=== PATIENT | male | born 1955 | race Caucasian/White ===

== ENCOUNTER 2024-01-07 14:46 | Emergency (ER) | payer MEDICARE, OTHER, SELFPAY ==
[2024-01-07 14:49] VITALS: BP 107/73
[2024-01-07 15:12] LABS: % Basophils 0.8 % (0-2); % Eosinophils 1.7 % (0-6); % Immature Granulocytes 0.6 % (0-0.5); % Lymphocytes 23.3 % (20.5-51.1); % Neutrophils 63.6 % (42.2-75.2); Absolute Basophils 0.1 10^3/uL (0-0.2); Absolute Eosinophils 0.2 10^3/uL (0-0.7); Absolute Immature Granulocytes 0.1 10^3/uL (0-0.05); Absolute Lymphocytes 2.5 10^3/uL (1.2-3.4); Absolute Monocytes 1.1 10^3/uL (0.1-0.6); Absolute Neutrophils 6.8 10^3/uL (1.4-6.5); Hemoglobin 14.5 g/dL (13.0-18.0); Mean Corp Hgb Conc. 34.5 g/dL (33.0-37.0); Mean Corpuscular Hgb 30.7 pg (27.0-31.0); Mean Corpuscular Volume 88.8 fL (80.0-94.0); Mean Platelet Volume 9.8 fL (7.4-10.4); Nucleated Red Blood Cells % 0 % (-); Platelet Count 263 10^3/uL (130-400); Red Blood Cell Count 4.73 10^6/uL (4.70-6.10); Red Cell Dist. Width 13.5 % (11.5-14.5); White Blood Cell Count 10.6 10^3/uL (4.8-10.8)
[2024-01-07 15:16] LABS: Urine Albumin Trace (Neg - Trace); Urine Bilirubin 1+ (Negative); Urine Character Clear (Clear); Urine Color Yellow; Urine Glucose Negative (Negative); Urine Ketone 1+ (Negative); Urine Leukocyte Trace (Negative); Urine Nitrite Negative (Negative); Urine Occult Blood 2+ (Negative); Urine Urobilinogen Negative (Neg - 1+)
[2024-01-07 15:30] LABS: Urine Bacteria Few (Negative); Urine Squamous Cell 0-2 /LPF (Few)
[2024-01-07 15:36] LABS: ALT (SGPT) < 10 U/L (0-50); AST (SGOT) 25 U/L (17-59); Albumin 4.6 g/dl (3.5-5.0); Alkaline Phosphatase 76 U/L (38-126); Blood Urea Nitrogen 26 mg/dl (9-20); Calcium 9.2 mg/dl (8.4-10.2); Carbon Dioxide 27 mmol/L (22-30); Chloride 109 mmol/L (98-107); Glucose 86 mg/dl (70-99); Lipase 56 U/L (23-300); Potassium 4.3 mmol/L (3.5-5.1); Sodium 139 mmol/L (135-145); Total Bilirubin 0.6 mg/dl (0.2-1.3); Total Protein 7.9 g/dl (6.3-8.2); eGFR > 60.00
--- NOTE | 2024-01-07 17:26 | ED.GENMED ---
History of Present Illness
General
Chief Complaint: Abdominal Pain
Source: patient
Time Seen by Provider: 01/07/24 17:10
Travel History
Have you had any contact with someone who has COVID-19?: No
Do you have any symptoms of coronavirus? Fever > 100 degrees, chills, cough, shortness of breath, sore throat, loss of taste or smell, muscle aches, or headache?: No
History of Present Illness
History of Present Illness:
68-year-old male with past medical history of Parkinson's disease, previous history of DVT presenting to the emergency department for evaluation of left-sided flank pain that started upon awakening, began acutely, sharp, constant with waxing and
waning intensity associated in the later afternoon with increased urinary frequency and urgency but without any nausea, vomiting, bowel changes, hematuria, dysuria, testicular pain or edema or any other concerns. Patient states that the pain is
reminiscent of previous kidney stones. He did not take anything for pain prior to arrival but does state the pain did improve with putting ice packs over the left flank area.
Past History
Past History
ED Past Medical History: Other (Parkinson's) and Other (DVT, right lower extremity x2)
ED Past Surgical History: None
Social History
Tobacco: Non-smoker
Alcohol: None
Drug: None
Personal:
Living: with family
Employment: Employed
Review of Systems
Review of Systems
All Other Systems: ROS reviewed and negative except as documented in HPI and ROS
Phy Exam
Physical Exam
Physical Exam:
GENERAL: Alert , in no apparent distress
EYE: clear conjunctiva b/l
HEAD: NCAT
ENT: o/p clr, mmm.
CARDIAC: Regular rate and rhythm .
LUNGS: Clear breath sounds bilaterally, no acute respiratory distress, no wheezes/rales/rhonchi
ABDOMEN: Soft, without focal tenderness, no r/g, mild left CVA tenderness
NEUROLOGICAL: Alert and oriented
SKIN: Warm and dry, skin intact.
MUSCULOSKELETAL: No edema, well perfused.
PSYCH: Normal and appropriate interaction.
Scores
Heart Failure Risk
Heart Failure Risk Score: Not Applicable
Heart Score for Chest Pain Patients
STEMI patient?: Not applicable
Withdrawal Assessment of Alcohol
Withdrawal Assessment Completed?: Not applicable
Course
Orders/Labs/Results
Orders:
Orders
01/07/24 15:03
Complete Blood Count/With Diff Urgent
Comprehensive Metabolic Panel Urgent
Lipase Urgent
Urinalysis Reflex To Culture Urgent
Date Specimen was Collected: 01/07/24
Time Specimen was Collected: 14:54
Urine Microscopic Reflex Cult Urgent
01/07/24 17:18
CT Abd/pel Without Iv Or Oral Urgent
Comment:
Reason For Exam: left flank pain, hx of stones
01/07/24 17:30
0.9% Sodium Chloride 1000 ml [Nss] 1,000 ml IV BOLUS
Ketorolac [Toradol] 30 mg IV NOW STA
Abnormal Lab Results
01/07/24
15:03
Abs Immat Gran (auto) 0.1 H 10^3/uL
(0-0.05)
Absolute Neuts (auto) 6.8 H 10^3/uL
(1.4-6.5)
Absolute Monos (auto) 1.1 H 10^3/uL
(0.1-0.6)
Immature Gran % 0.6 H %
(0-0.5)
Monocytes % 10.0 H %
(1.7-9.3)
Chloride 109 H mmol/L
(98-107)
BUN 26 H mg/dl
(9-20)
Urine Ketones 1+ A
(Negative)
Ur Occult Blood Reflex 2+ A
(Negative)
Urine Bilirubin 1+ A
(Negative)
Leukocyte Esterase Rfl Trace A
(Negative)
Urine RBC 11-15 A /HPF
(0-2)
Urine Bacteria (Reflex) Few A
(Negative)
01/07/24 15:03
01/07/24 15:03
Vital Signs
Initial and Last Documented VS:
Initial Vital Signs
Temp Pulse Resp BP Pulse Ox
97.7 F 78 18 107/73 99
01/07/24 14:49 01/07/24 14:49 01/07/24 14:49 01/07/24 14:49 01/07/24 14:49
Last Documented Vital Signs
Temp Pulse Resp BP Pulse Ox
97.7 F 78 18 107/73 99
01/07/24 14:49 01/07/24 14:49 01/07/24 14:49 01/07/24 14:49 01/07/24 14:49
MDM/Problems Addressed
Differential Diagnosis Includes:
Renal/ureteral colic, urinary tract infection/cystitis/pyelonephritis, diverticulitis
MDM/Problems Addressed:
68-year-old male presenting emergency department for evaluation of left-sided flank pain that began this morning, pain now radiating more into the left lower quadrant and associated with urinary frequency and urgency. Based on the description of
pain and symptoms I suspect ureteral colic to be the most likely diagnosis. Lab and urine were initiated in triage which shows microscopic hematuria furthering suspicion for renal/ureteral colic. CT ordered. Pain control ordered. Reassessment
following. The
*Radiology
Radiology exam reviewed: radiology read reviewed
*Pulse Oximetry
Patient hypoxic: no
*Critical Care Note
Total Time (30-74mins, 75-104mins- exclusive of procedures): Not Applicable
Data Reviewed
Review of Other/Old Records Reveals: Labs and Records
Patient Management
Escalation/DeEscalation of care consider admission/obs:
Patient's CT findings as noted below:
IMPRESSION:
1. MILD ACUTE LEFT HYDROURETERONEPHROSIS secondary to a 2.9 mm obstructing calculus in the distal left ureter.
2. Small nonobstructing right intrarenal calculi measuring less than 5 mm in size.
3. Moderate diffuse hepatic steatosis.
4. Moderate calcific atherosclerotic plaque in the abdominal aorta.
5. Mildly enlarged prostate gland.
6. Severe facet joint arthrosis at L4/L5 and L5/S1.
Pain is fully resolved. Patient was provided with a printout of his CT reports. He was provided with prescription for naproxen, Percocet and Flomax. Information for urology was also provided. He will contact them on Tuesday for a follow-up visit.
Aware of return precautions but otherwise stable for discharge home.
ED Attending Note
-
Portions of this chart may have been created with voice recognition software.� Occasional wrong word or��sound alike� substitutions may have occurred due to the inherent limitations of voice recognition software.
Discharge Plan
Departure
Patient Disposition: Home (Routine Discharge)
Date of Disposition: 01/07/24
Time of Disposition: 18:42
Patient with high blood pressure during this ER visit?: No
Discharge Problem:
Ureterolithiasis
Instructions: Kidney Stones (DC)
Prescriptions:
New
naproxen 500 mg tablet
500 mg PO BID PRN (Reason: Pain) Qty: 20 0RF
oxycodone-acetaminophen [Percocet] 5-325 mg tablet
1 tab PO Q6HPRN PRN (Reason: pain) Qty: 8 0RF
tamsulosin [Flomax] 0.4 mg capsule
0.4 mg PO DAILY Qty: 10 0RF
No Action
oxycodone-acetaminophen 5 MG/325 MG tablet
1 tab PO Q4HPRN PRN (Reason: pain) Qty: 16 0RF
levofloxacin 500 MG tablet
500 mg PO DAILY 5 Days 0RF
hydrocodone-acetaminophen 1 TABLET tablet
1 tab PO Q4HPRN PRN (Reason: breakthrough pain) Qty: 7 0RF
tamsulosin 0.4 MG capsule
0.4 mg PO DAILY Qty: 5 0RF
diclofenac sodium 75 MG tablet,delayed release (DR/EC)
75 mg PO BID Qty: 14 0RF
apixaban [Eliquis DVT-PE Treat 30D Start] 5 MG tablets,dose pack
5 - 10 mg PO DIRECTED Qty: 1 0RF
Eliquis DVT-PE Treat 30D Start 5 mg (74 tabs) tablets,dose pack
See Rx Instructions .ROUTE .COMPLEX Qty: 1 0RF
Rx Instructions:
orally per package directions
Eliquis 5 mg tablet
5 mg PO BID Qty: 60 0RF
Referrals:
Sandhya Zurita DO [Family Provider] -
Jorge Kauffman MD [Active] - (Urology)
Interventions
Interventions:
*Risk Screen - Suicide Last Done: 01/07/24 17:54
*General Assessment Last Done: 01/07/24 14:49
*Neglect/Abuse Screening Last Done: 01/07/24 17:54
*ED COVID-19 Vaccine History Last Done: 01/07/24 14:49
OX-Ouypmh-Dmkjoivnxx Assessment Last Done: 01/07/24 17:54
Discharge Date and Time
Print Language: TAMAZIGHT
[2024-01-07] MEDS: NSS 1000 IV (17:40)
[2024-01-07] MEDS: TORADOL 30 MG IV (17:42)
== END 2024-01-07 20:06 | disposition home or self-care (01) ==
LOC: EMR 14:46
PROVIDERS: Emergency Medicine; EMERGENCY PHYSICIAN Emergency Medicine; FAMILY PHYSICIAN Family Medicine
DX: N13.2 Hydronephrosis with renal and ureteral calculous obstruction (principal); K76.0 Fatty (change of) liver, not elsewhere classified; G20.A1 Parkinson's disease without dyskinesia, without mention of fluctuations; Z86.718 Personal history of other venous thrombosis and embolism; Z87.442 Personal history of urinary calculi; Z79.01 Long term (current) use of anticoagulants; Z88.0 Allergy status to penicillin
CPT/HCPCS: 99284; 96374; 96361; 74176; 80053; 81003; 81015; 83690; 85025

== ENCOUNTER 2024-05-22 01:14 | Observation (INO) | payer MEDICARE, OTHER, SELFPAY ==
[2024-05-21] VITALS (8 sets, daily range): BP systolic 114–157; BP diastolic 62–89; PULSE 70–75
[2024-05-21 18:58] LABS: % Basophils 0.8 % (0-2); % Eosinophils 1.2 % (0-6); % Immature Granulocytes 0.1 % (0-0.5); % Lymphocytes 21.8 % (20.5-51.1); % Monocytes 8.9 % (1.7-9.3); % Neutrophils 67.2 % (42.2-75.2); Absolute Basophils 0.1 10^3/uL (0-0.2); Absolute Eosinophils 0.1 10^3/uL (0-0.7); Absolute Lymphocytes 1.9 10^3/uL (1.2-3.4); Absolute Monocytes 0.8 10^3/uL (0.1-0.6); Absolute Neutrophils 5.7 10^3/uL (1.4-6.5); Hematocrit 37.3 % (39.0-52.0); Hemoglobin 12.8 g/dL (13.0-18.0); Mean Corp Hgb Conc. 34.3 g/dL (33.0-37.0); Mean Corpuscular Hgb 30.5 pg (27.0-31.0); Mean Corpuscular Volume 88.8 fL (80.0-94.0); Nucleated Red Blood Cells % 0 % (-); Platelet Count 231 10^3/uL (130-400); Red Cell Dist. Width 13.4 % (11.5-14.5); White Blood Cell Count 8.5 10^3/uL (4.8-10.8)
[2024-05-21 19:16] LABS: ALT (SGPT) < 10 U/L (0-50); AST (SGOT) 23 U/L (17-59); Albumin 4.5 g/dl (3.5-5.0); Alkaline Phosphatase 70 U/L (38-126); Blood Urea Nitrogen 31 mg/dl (9-20); Calcium 9.8 mg/dl (8.4-10.2); Carbon Dioxide 21 mmol/L (22-30); Chloride 109 mmol/L (98-107); Glucose 96 mg/dl (70-99); Potassium 4.1 mmol/L (3.5-5.1); Sodium 139 mmol/L (135-145); Total Bilirubin 0.8 mg/dl (0.2-1.3); Total Protein 7.5 g/dl (6.3-8.2); eGFR > 60.00
--- NOTE | 2024-05-21 22:23 | ED.GENMED ---
History of Present Illness
<Jie Miller MD, Resident - Last Filed: 05/22/24 01:08>
General
Chief Complaint: Numbness
Time Seen by Provider: 05/21/24 21:55
History of Present Illness
History of Present Illness:
The patient is 68 year old male with a PMH of Parkinson Disease,Kidney stone, Hepatic steatosis, DVT who presented to ER today complaining from numbness and tingling on his left hand. He reports that he feels his numbness and tingling especially on
his 4 and 5 th finger tips and, it was radiating to his left wrist and under his elbow when it started. This complaining started today around 4.00 pm after he did some gardening works with tools. Additionally he reported that he stood on his knee
for a long time more than normal. He reported he felt weakness on his knee and he experienced this kind of weakness for the first time. He denies chest pain, SOB, trauma, weakness on his extremities.
If applicable-neuro sx onset
Date of onset of symptoms: 05/21/24
Past History
<Jie Miller MD, Resident - Last Filed: 05/22/24 01:08>
Past History
ED Past Medical History: Other (Parkinson's) and Other (DVT, right lower extremity x2)
ED Past Surgical History: None
Social History
Tobacco: Non-smoker
Alcohol: None
Drug: None
Personal:
Living: with family
Employment: Employed
Review of Systems
<Jie Miller MD, Resident - Last Filed: 05/22/24 01:08>
Review of Systems
Cardiac: Reports no symptoms
ABD/GI: Reports no symptoms
: Reports no symptoms
Skin: Reports no symptoms
Neurological: Reports no symptoms
Phy Exam
<Jie Miller MD, Resident - Last Filed: 05/22/24 01:08>
Physical Exam
Physical Exam:
Phalen test bilateral negative
General Physical Exam
General Presentation: well appearing
General age: appears stated age
General Skin: warm
General Mental: alert
ENT Exam
ENT Exam: pharynx normal
Cardiovascular Exam
Cardiovascular Exam: regular rate/rhythm and no edema
Pulmonary Exam
Pulmonary Exam: no respiratory distress
Neurological Exam
Neurological Exam: alert, oriented x3, CN II-XII intact, no motor deficits, normal reflexs, no sensory deficits and speech normal
Course
<Jie Miller MD, Resident - Last Filed: 05/22/24 01:08>
Orders/Labs/Results
Orders:
Orders
05/21/24 18:53
CMP [Comprehensive Metabolic Panel] Urgent
Complete Blood Count/With Diff Urgent
05/21/24 22:22
Electrocardiogram (*1) Urgent
Reason for Study: Other
Other Reason for Exam: numbness on left hand
05/21/24 22:23
EKG- Treatment ONCE
05/21/24 22:40
Orthostatic VS- Treatment ONCE
05/21/24 22:41
CT Head W/o Iv Contrast Urgent
Comment:
Reason For Exam: L arm numbness, b/l leg weakness-acute onset
05/22/24 00:42
Troponin I Urgent
Abnormal Lab Results
05/21/24
18:53
RBC 4.20 L 10^6/uL
(4.70-6.10)
Hgb 12.8 L g/dL
(13.0-18.0)
Hct 37.3 L %
(39.0-52.0)
Absolute Monos (auto) 0.8 H 10^3/uL
(0.1-0.6)
Chloride 109 H mmol/L
(98-107)
Carbon Dioxide 21 L mmol/L
(22-30)
BUN 31 H mg/dl
(9-20)
05/21/24 18:53
05/21/24 18:53
Vital Signs
Initial and Last Documented VS:
Initial Vital Signs
Temp Pulse Resp BP Pulse Ox
98.1 F 83 18 117/62 96
05/21/24 18:42 05/21/24 18:42 05/21/24 18:42 05/21/24 18:42 05/21/24 18:42
Last Documented Vital Signs
Temp Pulse Resp BP Pulse Ox
98.1 F 66 16 143/84 99
05/21/24 18:42 05/22/24 00:45 05/22/24 00:45 05/22/24 00:41 05/22/24 00:45
<Martha Juárez, DO - Last Filed: 05/22/24 00:32>
Orders/Labs/Results
Orders:
Orders
05/21/24 18:53
CMP [Comprehensive Metabolic Panel] Urgent
Complete Blood Count/With Diff Urgent
05/21/24 22:22
Electrocardiogram (*1) Urgent
Reason for Study: Other
Other Reason for Exam: numbness on left hand
05/21/24 22:23
EKG- Treatment ONCE
05/21/24 22:40
Orthostatic VS- Treatment ONCE
05/21/24 22:41
CT Head W/o Iv Contrast Urgent
Comment:
Reason For Exam: L arm numbness, b/l leg weakness-acute onset
05/22/24 00:42
Troponin I Urgent
Abnormal Lab Results
05/21/24
18:53
RBC 4.20 L 10^6/uL
(4.70-6.10)
Hgb 12.8 L g/dL
(13.0-18.0)
Hct 37.3 L %
(39.0-52.0)
Absolute Monos (auto) 0.8 H 10^3/uL
(0.1-0.6)
Chloride 109 H mmol/L
(98-107)
Carbon Dioxide 21 L mmol/L
(22-30)
BUN 31 H mg/dl
(9-20)
05/21/24 18:53
05/21/24 18:53
Vital Signs
Initial and Last Documented VS:
Initial Vital Signs
Temp Pulse Resp BP Pulse Ox
98.1 F 83 18 117/62 96
05/21/24 18:42 05/21/24 18:42 05/21/24 18:42 05/21/24 18:42 05/21/24 18:42
Last Documented Vital Signs
Temp Pulse Resp BP Pulse Ox
98.1 F 66 16 143/84 99
05/21/24 18:42 05/22/24 00:45 05/22/24 00:45 05/22/24 00:41 05/22/24 00:45
<Jie Miller MD, Resident - Last Filed: 05/22/24 01:08>
MDM/Problems Addressed
Differential Diagnosis Includes:
IL, TIA, Peripheral nerve impingement, cervical disc hernia, musculoskeletal injury
MDM/Problems Addressed:
ECG, CBC, CMP, Head CT were ordered.
ECG and CMP :Unremarkable
CBC: Low RBC ( HGB:12.8), The patient denied rectal exam and reported he prefers to be followup up by his PCP.
Head CT:
<Jie Miller MD, Resident - Last Filed: 05/22/24 01:08>
*Critical Care Note
Total Time (30-74mins, 75-104mins- exclusive of procedures): Not Applicable
ED Attending Note
<Jie Miller MD, Resident - Last Filed: 05/22/24 01:08>
-
Portions of this chart may have been created with voice recognition software.� Occasional wrong word or��sound alike� substitutions may have occurred due to the inherent limitations of voice recognition software.
<Martha Juárez DO - Last Filed: 05/22/24 00:32>
ED Attending Note
Patient seen and examined by attending physician: Yes
I performed the substantive portion of visit, reviewed & personally made and approve the management plan that is documented in note by myself or MIGUEL.: Yes
I performed a history and physical exam of patient and discussed management with resident, I reviewed resident's note and agree with documented findings and plan of care.: Yes
ED Attending Note:
This is a 69-year-old gentleman who resides at home with his and sister. He has history of Parkinson's disease as well as prior history of DVT right lower extremity x 2 episodes November 2021 and again August 2022, treated each time with a
course of Eliquis and then reportedly followed up with hematology. Unsure as to hypercoagulable workup but states he was not recommended to continue long-term anticoagulation.
While working on his tractor today lying on his knees, on the ground, using tools he was able to do this uneventfully and was able to get up and going to the house but an hour after completing his work he developed abrupt onset of left arm numbness
primarily ulnar aspect of his forearm that radiated to his left fourth and fifth digit accompanied with bilateral knee weakness feeling that his knees were going to give out, feeling that he was going to fall. Significant weakness lasted perhaps 5
minutes and he needed to quickly sit down but was not accompanied with sensation of lightheadedness, no chest pain or palpitations, no dizziness, no diaphoresis, no shortness of breath. No back pain nor abdominal pain.
Initial episode occurred perhaps 4 PM/4:30 PM and then another very similar episode happened while in the ED waiting room after he walked to the bathroom he developed sudden onset of left arm numbness, bilateral knee weakness causing him to have to
lean against the door for fear that his legs were going to give out. He did not, no other associated and bilateral knee soft after 5 to 10 minutes. Left forearm numbness slowly 30 minutes. He denies leg pain nor numbness.
No history of similar episodes in the past.
GENERAL: Alert , in no apparent distress. 69-year-old gentleman appears his stated age, awake and alert, pleasant, appears in no acute distress. Easily communicative. Sister is accompanying.
EYE: pupils equal and reactive. anicteric
NECK: Supple, nontender, no meningismus, no significant adenopathy.
ENT: posterior pharynx is clear, oral mucosa is moist. TM clear b/l, nares patent.
CARDIAC: Regular rate and rhythm. no murmur.
LUNGS: Clear breath sounds bilaterally, no acute respiratory distress, no wheezes/rales/rhonchi
ABDOMEN: Soft, nondistended, without focal tenderness, no r/g, no cvat. normoactive BS.
NEUROLOGICAL: Alert and oriented x3, moderate resting tremor of bilateral upper extremities/hands. Minimal paresthesia left fourth and fifth digits. Strength intact bilaterally. Gait is steady.
SKIN: Warm and dry, normal color, skin intact. No rash.
MUSCULOSKELETAL: No C/C/E. peripheral pulses are full and equal b/l. No palpable tenderness.
PSYCH: Normal and appropriate interaction.
Concern for TIA, CVA, arrhythmia, orthostasis, ACS, muscle fatigue, ulnar neuropathy.
Labs show mild anemia with hemoglobin of 12.8, 2 g drop since January. Patient denies black or tarry stools. He declines rectal exam.
Will check orthostatic vital signs. Troponin.
Will check EKG as well as CT of the head.
05/22/2024 0031 AM
Orthostatic vital signs are negative.
EKG shows normal sinus rhythm, right bundle branch block, no acute ST-T wave abnormalities. No old EKG to compare.
CT of the head is unremarkable.
I still have significant concern for potential TIA thus recommend hospitalization for continued observation/evaluation.
Discharge Plan
Departure
Patient Disposition: Admit
Date of Disposition: 05/22/24
Time of Disposition: 00:24
Admit to: Telemetry
Admit to doctor: Htay
Presentation/result/management discussed w/ accepting MD/DO: Hospitalist
Condition: Fair
Discharge Problem:
TIA r/o CVA, New onset anemia
Prescriptions:
No Action
oxycodone-acetaminophen 5 MG/325 MG tablet
1 tab PO Q4HPRN PRN (Reason: pain) Qty: 16 0RF
levofloxacin 500 MG tablet
500 mg PO DAILY 5 Days 0RF
hydrocodone-acetaminophen 1 TABLET tablet
1 tab PO Q4HPRN PRN (Reason: breakthrough pain) Qty: 7 0RF
tamsulosin 0.4 MG capsule
0.4 mg PO DAILY Qty: 5 0RF
diclofenac sodium 75 MG tablet,delayed release (DR/EC)
75 mg PO BID Qty: 14 0RF
apixaban [Eliquis DVT-PE Treat 30D Start] 5 MG tablets,dose pack
5 - 10 mg PO DIRECTED Qty: 1 0RF
Eliquis DVT-PE Treat 30D Start 5 mg (74 tabs) tablets,dose pack
See Rx Instructions .ROUTE .COMPLEX Qty: 1 0RF
Rx Instructions:
orally per package directions
Eliquis 5 mg tablet
5 mg PO BID Qty: 60 0RF
naproxen 500 mg tablet
500 mg PO BID PRN (Reason: Pain) Qty: 20 0RF
oxycodone-acetaminophen [Percocet] 5-325 mg tablet
1 tab PO Q6HPRN PRN (Reason: pain) Qty: 8 0RF
tamsulosin [Flomax] 0.4 mg capsule
0.4 mg PO DAILY Qty: 10 0RF
Referrals:
Sandhya Zurita DO [Family Provider] -
Interventions
Interventions:
ED- Neurological Assessment Last Done: 05/21/24 21:25
Discharge Date and Time
Print Language: MONEGASQUE
[2024-05-22] VITALS (7 sets, daily range): BP systolic 98–148; BP diastolic 59–90; PULSE 71; O2SAT 99; BMI 23.4
--- NOTE | 2024-05-22 00:56 | HPS.HSE ---
Family Physician
-
Family Physician: Sandhya Zurita
Chief Complaint
-
evaluation of Lt hand numbness and tingling:
History of Present Illness
HPI
68M PHX PKDz Hepatic steatosis, DVT, chr Eliquis, HTN seen at ER for evaluation of Lt hand numbness and tingling:
- Acute paresthesia especially on 4th and 5 th finger tips for 30 Mins : now completely resolved
- associated with radiating to left wrist and under his elbow
- Onset today after working on fixing tractor using tools for 3-4 hrs
- Also stood on his knee for a long time more than normal consequently felt weakness of knee
ROS
denies chest pain, SOB, trauma, weakness on his extremities.
Medical History
Past Medical History
Past Medical History: Reports HTN and Other (DVT )
Additional Past Medical History:
Hepatic steatosis
Past Surgical History: Reports None
Social History
Tobacco: Non-smoker
Alcohol: None
Drug: None
Personal:
Living: With Family
Family History
Family History: Not pertinent
Allergies / Home Medications
Allergies reflects when Allergies were last updated in [employer].
Home Medications with original date entered in [employer]
Allergy/Medication List:
Allergies
Allergy/AdvReac Type Severity Reaction Status Date / Time
Penicillins Allergy Rash Verified 05/21/24 18:44
Home Medications
levofloxacin 500 mg tablet 500 mg PO DAILY 5 days 03/30/10
oxycodone-acetaminophen 5 mg-325 mg tablet 1 tab PO Q4HPRN PRN pain #16 tabs 03/30/10
diclofenac sodium 75 mg tablet,delayed release 75 mg PO BID #14 tabs 05/05/21
hydrocodone 5 mg-acetaminophen 325 mg tablet 1 tab PO Q4HPRN PRN breakthrough pain #7 tabs 05/05/21
tamsulosin 0.4 mg capsule 0.4 mg PO DAILY #5 caps 05/05/21
apixaban 5 mg (74 tabs) tablets in a dose pack (Eliquis DVT-PE Treat 30D Start) 5 - 10 mg (1 - 2 x 5 mg (74 tabs)) PO DIRECTED ##1 11/03/21
apixaban 5 mg (74 tabs) tablets in a dose pack (Eliquis DVT-PE Treat 30D Start) See Rx Instructions PO .COMPLEX #1 ea 08/10/22
apixaban 5 mg tablet (Eliquis) 5 mg PO BID #60 tabs 08/11/22
naproxen 500 mg tablet 500 mg PO BID PRN Pain #20 tabs 01/07/24
oxycodone-acetaminophen 5 mg-325 mg tablet (Percocet) 1 tab PO Q6HPRN PRN pain #8 tabs 01/07/24
tamsulosin 0.4 mg capsule (Flomax) 0.4 mg PO DAILY #10 caps 01/07/24
Review of Systems
-
Constitutional: Reports No Symptoms
EENT: Reports No Symptoms
Respiratory: Reports No Symptoms
Cardiac: Reports No Symptoms
Abdomen/GI: Reports No Symptoms
: Reports No Symptoms
Musculoskeletal: Reports No Symptoms
Skin: Reports No Symptoms
Neurological: Reports See HPI
Endocrine: Reports No Symptoms
Hematologic/Lymphatic: Reports No Symptoms
Psych: Reports No Symptoms
Physical Exam
Vital Signs
Vital Signs
Temp Pulse Resp BP Pulse Ox
98.1 F 66 16 143/84 99
05/21/24 18:42 05/22/24 00:45 05/22/24 00:45 05/22/24 00:41 05/22/24 00:45
Physical Exam
General: Well Developed, Well Nourished and No Apparent Distress
HEENT: NormoCephalic, Moist mucous membranes and Atraumatic
Respiratory: Clear
Cardiac: S1/S2 and Regular Rhythm; No Murmur or Rub
GI: Soft, Non Tender, Non Distended and Normal Bowel Sounds; No Organomegaly
Rectal: Deferred by Provider
Musculoskeletal: No Clubbing, No Cyanosis and No Edema
Skin: No Rash
Neuro: Nonfocal/grossly intact
Laboratory Results
-
05/21/24 18:53
05/21/24 18:53
Laboratory Results
Total Bilirubin 0.8 mg/dl (0.2-1.3) 05/21/24 18:53
AST 23 U/L (17-59) 05/21/24 18:53
ALT < 10 U/L (0-50) 05/21/24 18:53
Alkaline Phosphatase 70 U/L (38-126) 05/21/24 18:53
Impression/Plan
-
Reviewed VS: unremarkable
Data
Hgb 12.8
Cl 109
CO2 21
BUN 31
Cr 1.2
eGFR > 60
HCT
No acute pathology
EKG
NORMAL SINUS RHYTHM
POSSIBLE LEFT ATRIAL ENLARGEMENT
RIGHT SUPERIOR AXIS DEVIATION
INCOMPLETE RIGHT BUNDLE BRANCH BLOCK
POSSIBLE RIGHT VENTRICULAR HYPERTROPHY
POSSIBLE INFERIOR INFARCT , AGE UNDETERMINED
ABNORMAL ECG
NO PREVIOUS ECGS AVAILABLE
NO PRIOR hospitalist admission:
ASSESSMENT & PLAN
Pending Rx reconciliation
Transient acute paresthesia of Lt. 4th and 5 th finger tips with radiation to wrist and elbow: completely resolved when I see him
- Onset today after working on fixing tractor using tools for 3-4 hrs
- Low clinical suspicion for CVA
- Other DDX; Peripheral neuropathy due to entrapment or prolonged pressure duecto working on fixing tractor using tools for 3-4 hrs
- NEG HCT
- Nonfocal neuro deficit on exam
- hold of Brain MRI till Neuro evaluation
- Neuro consult
Transient weakness of both knees after prolonged pressure on both knees
Suspect muscle exhaustion especially with underlying PKDz
- PT/OT
HX PKDz
- pending Rx reconciliation
[facility] HTN
- cont. OP Meds after Pending Rx reconciliation
HX DVT in 2021 treated Eliquis for 6 monhs
- No longer on Eliquis
BPH
- on BOWL TOPPER Flomax
DVT Px: BOWL TOPPER Eliquis
Code: Full
Obs TLM
[2024-05-22 01:13] LABS: Troponin I < 0.012 ng/ml
--- NOTE | 2024-05-22 04:50 | PTCARENOTE ---
Receive pt from ER. Pt alert oriented X3, calm and cooperative. Pt assisted X1 to his bed, steady. Pt oriented to the room, call gibson within reach. VSS (T=98.3, HR=72, RR=18, AJ=129/82, SpO2=99% on RA). Pt on NSR on telemonitor. Pt has no complaint
of numbness, or weakness, states that his sx are completely resolved. Pt NIH=0. Passes the swallow test. Pt instructed to call if there is a recurrence of his previous sx or new sx. Stroke packet given to the pt. Will continue to monitor the pt.
[2024-05-22] MEDS: SINEMET 10-100 2 TABLET PO ×3 (06:01→12:53)
[2024-05-22] MEDS: REQUIP 4 MG PO (06:02)
--- NOTE | 2024-05-22 08:32 | W.PN.HOSP.TC ---
Today's Communication/Plan
-
Discharge planning today.
Assessment / Plan
Assessment / Plan
Physical exam:
General: Well Developed, Well Nourished and No Apparent Distress
HEENT: Normocephalic, Atraumatic and Moist Mucous Membranes
Respiratory: Clear to Auscultation; Negative Wheezes, Rales or Rhonchi
Cardiac: Regular Rhythm and S1/S2
GI: Soft, Nontender and Nondistended
Musculoskeletal: No Clubbing, No Cyanosis and No Edema
Neuro: Awake, Alert and Oriented, no neuro-deficits
Psych: Calm
A/P:
Transient paresthesia of the left upper extremity due to ulnar neuropathy-symptoms resolved, neurology consult appreciated. Cleared to discharge home today.
Parkinson's disease-continue carbidopa levodopa, also on Artane and ropinirole
DVT-resume anticoagulation upon discharge
DVT prophylaxis-resume anticoagulation upon discharge
CODE STATUS-full code
Anticipated Discharge: Today
Subjective/Interval History
-
Date of Service: May 22, 2024
Patient does not have any new complaints today. No paresthesias today but area affected corresponds to ulnar distribution.
Objective Data
-
Vital Signs:
Vital Signs
Temp Pulse Resp BP Pulse Ox
98.3 F 66 14 98/59 98
05/22/24 07:00 05/22/24 07:00 05/22/24 07:00 05/22/24 07:00 05/22/24 07:00
I&O
05/21/24 05/22/24 05/23/24
06:59 06:59 06:59
Intake Total 0 / 0
Balance 0 / 0
[2024-05-22 09:13] LABS: HDL Cholesterol 37 mg/dl; LDL Cholesterol, Calculated 99 mg/dl; Total Cholesterol 152 mg/dl (50-199); Triglyceride 82 mg/dl (10-149); Very Low Density Lipoprotein 16 mg/dl (0-30)
--- NOTE | 2024-05-22 10:53 | PTOTSP ---
Pt reports no symptoms today. He is able to get OOB and ambulate in hallway independently without need for any assistive device. No acute PT needs were identified. PT will sign off.
[2024-05-22] MEDS: ARTANE 2 MG PO (12:53)
--- NOTE | 2024-05-22 12:54 | W.DCSUMMARY ---
Addendum entered and electronically signed by Guerrero Escalera MD 05/22/24 13:34:
Discharge medications were erroneously placed on records therefore please see medication list upon discharge for accuracy.
Original Note:
Discharge Summary
Discharge Data
Date of Admission: 05/22/24
Date of Discharge: 05/22/24
-
Pending Results: No
Hospital Course
Patient is 69 years male history of DVT on anticoagulation, Parkinson's, came into the hospital left hand paresthesias. Patient was kept on observation. Neurology consulted. Patient feels back to his baseline at this point. His symptoms are
related to ulnar neuropathy and no need for further neurological workup. Neurology cleared him for discharge today. He will be discharged in stable condition today.
Discharge Plan
-
Patient Disposition: Home (Routine Discharge)
Discharge Diagnosis/Procedures: Left ulnar neuropathy. Parkinson disease.
Diet: Low Cholesterol
Activity: As tolerated
Blood Work: Please PCP to order CBC, BMP within 1 week
Referrals:
Tee Boucher MD [Active] - in four to six weeks
Sandhya Zurita DO [Family Provider] - in less than 1 week
Prescriptions:
Continued
oxycodone-acetaminophen 5 MG/325 MG tablet
1 tab PO Q4HPRN PRN (Reason: pain) Qty: 16 0RF
hydrocodone-acetaminophen 1 TABLET tablet
1 tab PO Q4HPRN PRN (Reason: breakthrough pain) Qty: 7 0RF
tamsulosin 0.4 MG capsule
0.4 mg PO DAILY Qty: 5 0RF
apixaban [Eliquis DVT-PE Treat 30D Start] 5 MG tablets,dose pack
5 - 10 mg PO DIRECTED Qty: 1 0RF
Eliquis DVT-PE Treat 30D Start 5 mg (74 tabs) tablets,dose pack
See Rx Instructions .ROUTE .COMPLEX Qty: 1 0RF
Rx Instructions:
orally per package directions
Eliquis 5 mg tablet
5 mg PO BID Qty: 60 0RF
oxycodone-acetaminophen [Percocet] 5-325 mg tablet
1 tab PO Q6HPRN PRN (Reason: pain) Qty: 8 0RF
tamsulosin [Flomax] 0.4 mg capsule
0.4 mg PO DAILY Qty: 10 0RF
trihexyphenidyl 2 mg Tablet
2 mg PO 2XD MDD 4 mg
Rx Instructions:
First dose at 1100 am. Second dose at 1600.
ropinirole 4 mg Tablet Extended Release 24 Hr
4 mg PO 2XD
Rx Instructions:
first dose in am at 0600.
2nd dose at 2030
carbidopa-levodopa 10-100 mg Tablet
2 tab PO 5/D
Rx Instructions:
0600, 0900, 1300,1700, 2000
Discontinued
levofloxacin 500 MG tablet
500 mg PO DAILY 5 Days 0RF
diclofenac sodium 75 MG tablet,delayed release (DR/EC)
75 mg PO BID Qty: 14 0RF
naproxen 500 mg tablet
500 mg PO BID PRN (Reason: Pain) Qty: 20 0RF
Discharge Orders:
Discharge Patient (As Directed); Ordered 05/22/24
Ordered By: Guerrero Escalera
Discharge Date and Time
Print Language: TAJIK
--- NOTE | 2024-05-22 13:11 | CM ---
CM reviewed medical records. Patient is medically ready for discharge to home. As per PT , no needs noted.
Plan: home no needs.
--- NOTE | 2024-05-22 19:14 | W.PN.UPDATE ---
Update Note
Progress Note Update
This note serves as an addendum to the H&P by aerospace mechanic MIGUEL Trinity PASCUAL
HPI
72F HX frequent UTI, s/p multiple rounds of ABX ( Zyvox, Cipro, Augmentin, Macrobid,). OP recent UCx grows EColi , HX ESBL E Coli +BCx( December 2023) Tx with Fosomycin pw abdominal discomfort, chills. Significant fatigue and weakness worsening over
past few days.
ROS:
Generalized myalgia and back and neck pain
Unable to get of the Sofa for few days but she use all the energy to drive and cone to ER ?
Stable VSS:
Patient nontoxic appearing
Unremarkable Labs
NEG UA
UCx sent
05/22/[address] abdomen/ pelvis ordered
- unofficial read per radiology showed nothing acute.
01/07/24 CT AP Without Iv Or Oral
1. MILD ACUTE LEFT HYDROURETERONEPHROSIS secondary to a 2.9 mm obstructing calculus in the distal left ureter.
2. Small nonobstructing right intrarenal calculi measuring less than 5 mm in size.
3. Moderate diffuse hepatic steatosis.
4. Moderate calcific atherosclerotic plaque in the abdominal aorta.
5. Mildly enlarged prostate gland.
6. Severe facet joint arthrosis at L4/L5 and L5/S1.
ASSESSMENT & PLAN
Weakness and fatigue
suspect deconditioning elderly
NEG Current UA
Recent OP recent E Coli POS UCx - unknown sensitivity
Recent multiple round of ABx Cipro, Augmentin, Macrobid
HX severe iodine allergy
- f/u official report of admission Noncontrast CT
- Retrieve recent E Coli POS UCx for the PCP office
- sent of UCx at ER
- PT/OT & CRM consult to evaluate for SNF
Diffuse myalgia and arthralgia with back and neck pain
No CABRERA, parieto temporal tenderness, no tongue and jaw claudication
No prior HX PMR
nl AST
- ESR, CRP
- CPK
- Check Covid
Of note; She drove herself to ER but tool a long time per patient
DVT Px: LMWH
Code: Full code
Obs MS
== END 2024-05-22 13:55 | disposition home or self-care (01) ==
LOC: 4 EAST ACU 01:14
PROVIDERS: Emergency Medicine; ADMITTING PHYSICIAN Internal Medicine; ATTENDING PHYSICIAN Hospitalist; EMERGENCY PHYSICIAN Emergency Medicine; FAMILY PHYSICIAN Family Medicine
DX: G56.22 Lesion of ulnar nerve, left upper limb (principal); R20.0 Anesthesia of skin; G20.A1 Parkinson's disease without dyskinesia, without mention of fluctuations; D64.9 Anemia, unspecified; I10 Essential (primary) hypertension; K76.0 Fatty (change of) liver, not elsewhere classified; R53.1 Weakness; R20.2 Paresthesia of skin; G62.9 Polyneuropathy, unspecified; N40.0 Benign prostatic hyperplasia without lower urinary tract symptoms; R29.818 Other symptoms and signs involving the nervous system; M79.10 Myalgia, unspecified site; M54.9 Dorsalgia, unspecified; M54.2 Cervicalgia; I67.82 Cerebral ischemia; I45.10 Unspecified right bundle-branch block; Z87.442 Personal history of urinary calculi; Z86.718 Personal history of other venous thrombosis and embolism; Z88.0 Allergy status to penicillin; Z79.01 Long term (current) use of anticoagulants; Z87.440 Personal history of urinary (tract) infections
CPT/HCPCS: 70450; 80053; 80061; 84484; 85025; 93005; 97161; 97166; 99285; G0378

== ENCOUNTER 2024-07-06 16:35 | Emergency (ER) | payer MEDICARE, OTHER, SELFPAY ==
[2024-07-06 16:50] VITALS: BP 121/84
[2024-07-06 17:07] LABS: % Basophils 0.3 % (0-2); % Eosinophils 1.1 % (0-6); % Immature Granulocytes 0.6 % (0-0.5); % Lymphocytes 9.9 % (20.5-51.1); % Neutrophils 77.1 % (42.2-75.2); Absolute Eosinophils 0.2 10^3/uL (0-0.7); Absolute Immature Granulocytes 0.1 10^3/uL (0-0.05); Absolute Lymphocytes 1.4 10^3/uL (1.2-3.4); Absolute Monocytes 1.5 10^3/uL (0.1-0.6); Absolute Neutrophils 10.6 10^3/uL (1.4-6.5); Hematocrit 36.3 % (39.0-52.0); Hemoglobin 12.4 g/dL (13.0-18.0); Mean Corp Hgb Conc. 34.2 g/dL (33.0-37.0); Mean Corpuscular Hgb 29.7 pg (27.0-31.0); Mean Corpuscular Volume 86.8 fL (80.0-94.0); Mean Platelet Volume 10.1 fL (7.4-10.4); Nucleated Red Blood Cells % 0 % (-); Platelet Count 184 10^3/uL (130-400); Red Blood Cell Count 4.18 10^6/uL (4.70-6.10); Red Cell Dist. Width 13.2 % (11.5-14.5); White Blood Cell Count 13.8 10^3/uL (4.8-10.8)
[2024-07-06 17:24] LABS: ALT (SGPT) < 10 U/L (0-50); AST (SGOT) 19 U/L (17-59); Albumin 4.2 g/dl (3.5-5.0); Alkaline Phosphatase 57 U/L (38-126); Blood Urea Nitrogen 24 mg/dl (9-20); Calcium 8.8 mg/dl (8.4-10.2); Carbon Dioxide 24 mmol/L (22-30); Chloride 101 mmol/L (98-107); Glucose 105 mg/dl (70-99); Potassium 4.2 mmol/L (3.5-5.1); Sodium 139 mmol/L (135-145); Total Bilirubin 1.2 mg/dl (0.2-1.3); Total Protein 7.3 g/dl (6.3-8.2); eGFR > 60.00
--- NOTE | 2024-07-06 19:25 | ED.GENMED ---
History of Present Illness
<KORI Luis Last Filed: 07/07/24 01:18>
General
Chief Complaint: DVT/Possible Blood Clot
Source: patient
Exam Limitations: none
Time Seen by Provider: 07/06/24 19:23
Nursing documentation reviewed up to this point in time: agreed with
History of Present Illness
History of Present Illness:
This is a 69 y/o male with PMH of parkinson's, DVTs presents emergency department today with concerns of left calf pain and swelling. Patient states that he first noticed this sensation 3 days ago. Patient states that he has had DVTs in the past
and states it felt similar to this. Patient states he has previous DVTs in his right calf. Patient states that he does smoke half a pack a day. Patient denies any recent trauma. Patient denies any recent long distance travel. Patient denies any
history of cancer. Patient denies any chest pain or shortness of breath. Patient states that he was taken off of his Eliquis back in January because his PCP felt that he has been on for an appropriate amount of time. Patient denies any new
medications.
Past History
<KORI Luis Last Filed: 07/07/24 01:18>
Past History
ED Past Medical History: Other (Parkinson's) and Other (DVT, right lower extremity x2)
ED Past Surgical History: None
Social History
Tobacco: Non-smoker
Alcohol: None
Drug: None
Personal:
Living: with family
Employment: Employed
Review of Systems
<KORI Luis Last Filed: 07/07/24 01:18>
Review of Systems
All Other Systems: ROS reviewed and negative except as documented in HPI and ROS
Phy Exam
<KORI Luis Last Filed: 07/07/24 01:18>
Physical Exam
Physical Exam:
General: Patient is well appearing and in no acute distress; non-toxic
Skin: Warm and dry, no rashes or lesions
Head: Normocephalic, atraumatic
Eyes: Sclera non-icteric. EOMs intact.
Cardiac: Regular rate and rhythm, no murmurs
Peripheral Vascular: Mild swelling noted to the left calf, no erythema, tenderness to palpation of the left calf, 2+ dorsalis pedis and posterior tibial pulses
Pulm: Normal respiratory effort, no wheezes, rales, rhonchi
Musculoskeletal: Tenderness to palpation of the left calf
Neuro: CN II-XII intact, no focal neurologic deficits.
Psychiatric: Appropriate mood and affect.
Course
<Joelle Hung PA-C - Last Filed: 07/07/24 01:18>
Orders/Labs/Results
Orders:
Orders
07/06/24 16:54
US Legs, Left [US Periph Venous LOWER Ext LT] Urgent
Comment:
Reason For Exam: pain, swelling
07/06/24 16:59
CBC/With Diff [Complete Blood Count/With Diff] Urgent
CMP [Comprehensive Metabolic Panel] Urgent
07/06/24 20:15
Apixaban [Eliquis] 10 mg PO BID
Abnormal Lab Results
07/06/24
16:59
WBC 13.8 H 10^3/uL
(4.8-10.8)
RBC 4.18 L 10^6/uL
(4.70-6.10)
Hgb 12.4 L g/dL
(13.0-18.0)
Hct 36.3 L %
(39.0-52.0)
Abs Immat Gran (auto) 0.1 H 10^3/uL
(0-0.05)
Absolute Neuts (auto) 10.6 H 10^3/uL
(1.4-6.5)
Absolute Monos (auto) 1.5 H 10^3/uL
(0.1-0.6)
Immature Gran % 0.6 H %
(0-0.5)
Neutrophils % 77.1 H %
(42.2-75.2)
Lymphocytes % 9.9 L %
(20.5-51.1)
Monocytes % 11.0 H %
(1.7-9.3)
BUN 24 H mg/dl
(9-20)
Glucose 105 H mg/dl
(70-99)
07/06/24 16:59
07/06/24 16:59
Vital Signs
Initial and Last Documented VS:
Initial Vital Signs
Temp Pulse Resp BP Pulse Ox
98.1 F 85 18 121/84 98
07/06/24 16:50 07/06/24 16:50 07/06/24 16:50 07/06/24 16:50 07/06/24 16:50
Last Documented Vital Signs
Temp Pulse Resp BP Pulse Ox
98.1 F 87 18 136/88 98
07/06/24 16:50 07/06/24 20:42 07/06/24 16:50 07/06/24 20:42 07/06/24 20:42
<Martha Juárez, DO - Last Filed: 07/06/24 20:20>
Orders/Labs/Results
Orders:
Orders
07/06/24 16:54
US Legs, Left [US Periph Venous LOWER Ext LT] Urgent
Comment:
Reason For Exam: pain, swelling
07/06/24 16:59
CBC/With Diff [Complete Blood Count/With Diff] Urgent
CMP [Comprehensive Metabolic Panel] Urgent
07/06/24 20:15
Apixaban [Eliquis] 10 mg PO BID
Abnormal Lab Results
07/06/24
16:59
WBC 13.8 H 10^3/uL
(4.8-10.8)
RBC 4.18 L 10^6/uL
(4.70-6.10)
Hgb 12.4 L g/dL
(13.0-18.0)
Hct 36.3 L %
(39.0-52.0)
Abs Immat Gran (auto) 0.1 H 10^3/uL
(0-0.05)
Absolute Neuts (auto) 10.6 H 10^3/uL
(1.4-6.5)
Absolute Monos (auto) 1.5 H 10^3/uL
(0.1-0.6)
Immature Gran % 0.6 H %
(0-0.5)
Neutrophils % 77.1 H %
(42.2-75.2)
Lymphocytes % 9.9 L %
(20.5-51.1)
Monocytes % 11.0 H %
(1.7-9.3)
BUN 24 H mg/dl
(9-20)
Glucose 105 H mg/dl
(70-99)
07/06/24 16:59
07/06/24 16:59
Vital Signs
Initial and Last Documented VS:
Initial Vital Signs
Temp Pulse Resp BP Pulse Ox
98.1 F 85 18 121/84 98
07/06/24 16:50 07/06/24 16:50 07/06/24 16:50 07/06/24 16:50 07/06/24 16:50
Last Documented Vital Signs
Temp Pulse Resp BP Pulse Ox
98.1 F 87 18 136/88 98
07/06/24 16:50 07/06/24 20:42 07/06/24 16:50 07/06/24 20:42 07/06/24 20:42
<Joelle Hung PA-C - Last Filed: 07/07/24 01:18>
MDM/Problems Addressed
Differential Diagnosis Includes:
Differentials include DVT, musculoskeletal sprain/strain, cellulitis, caal's cyst
MDM/Problems Addressed:
69-year-old male history of Parkinson's presents emergency department today with left calf pain. Patient has a history of DVTs, had unprovoked DVT in the past. Patient does pack a day. On exam, he does have tenderness to the left calf but with no
overlying erythema, he is good distal pulses. He was found to have DVT to left lower extremity with thrombus within the left popliteal, peroneal, and posterior tibial veins. Patient is hemodynamically stable. Discussed restarting Eliquis.
Patient in agreement with this plan. Patient will follow-up with his primary care provider and we, he states he already has an appointment. Discussed possible evaluation with hematology. Patient stable for discharge.
Chronic conditions affecting care:
Recurrent DVTs.
<Joelle Hung PA-C - Last Filed: 07/07/24 01:18>
*Pulse Oximetry
Patient hypoxic: no
*Critical Care Note
Total Time (30-74mins, 75-104mins- exclusive of procedures): Not Applicable
Data Reviewed
Review of Other/Old Records Reveals: Records (Reviewed previous ER physician documentation or patient was seen for DVT) and Discharge Summary (Reviewed discharge summary from 05/22/2024 patient was seen for observation with left upper extremity
paresthesias)
Source: patient and records
<KOIR Luis Last Filed: 07/07/24 01:18>
Patient Management
Escalation/DeEscalation of care consider admission/obs:
Admit not indicated, patient stable for discharge.
ED Attending Note
<KORI Luis Last Filed: 07/07/24 01:18>
-
Portions of this chart may have been created with voice recognition software.� Occasional wrong word or��sound alike� substitutions may have occurred due to the inherent limitations of voice recognition software.
<Martha Juárez DO - Last Filed: 07/06/24 20:20>
ED Attending Note
Patient seen and examined by attending physician: Yes
I performed a history and physical exam of patient and discussed management with resident, I reviewed resident's note and agree with documented findings and plan of care.: Yes
ED Attending Note:
69-year-old gentleman with history of 1 previous DVT right lower extremity, treated with 6-month course of Eliquis which was discontinued over 1 year ago.
He presents with several day history of progressive left calf pain and swelling. No chest pain no shortness of breath, no dizziness or lightheadedness, no palpitations. No weakness nor numbness.
Exam remarkable for moderate global nonpitting edema left calf with mild tenderness posteriorly. There is no erythema. Superficial nontender varicosities noted bilateral lower extremities. Peripheral pulses are full and equal.
Ultrasound positive for DVT left lower extremity involving left popliteal, peroneal and posterior tibial veins.
Will resume Eliquis 5 mg twice daily.
Prompt follow-up with PCP for recheck. Patient has appointment scheduled for early next week.
Discharge Plan
Departure
Patient Disposition: Home (Routine Discharge)
Date of Disposition: 07/06/24
Time of Disposition: 20:29
Patient with high blood pressure during this ER visit?: No
Condition: Good
Discharge Problem:
DVT (deep venous thrombosis)
Instructions: Deep Vein Thrombosis (Blood Clots in the Legs) (DC), Apixaban
Prescriptions:
New
Eliquis DVT-PE Treat 30D Start 5 mg (74 tabs) tablets,dose pack
See Rx Instructions .ROUTE .COMPLEX Qty: 74 0RF
Rx Instructions:
orally per package directions
No Action
oxycodone-acetaminophen [Percocet] 5-325 mg tablet
1 tab PO Q6HPRN PRN (Reason: pain) Qty: 8 0RF
trihexyphenidyl 2 mg Tablet
2 mg PO 2XD MDD 4 mg
Rx Instructions:
First dose at 1100 am. Second dose at 1600.
ropinirole 4 mg Tablet Extended Release 24 Hr
4 mg PO 2XD
Rx Instructions:
first dose in am at 0600.
2nd dose at 2030
carbidopa-levodopa 10-100 mg Tablet
2 tab PO 5/D
Rx Instructions:
0600, 0900, 1300,1700, 2000
tamsulosin [Flomax] 0.4 mg capsule
0.4 mg PO DAILY
Eliquis 5 mg tablet
5 mg PO BID
Referrals:
Sandhya Zurita DO [Family Provider] -
Shahbaz Blanca MD [Active] - Call in 1-3 days for appt
Activity Restrictions/Additional Instructions:
Please follow up with your PCP Dr. Zurita in one week.
Eliquis has been sent to your pharmacy. Please take Eliquis 10 mg twice daily for one week followed by 5 mg twice a day. You will need to stay on Eliquis. Please call the attached number to be evaluated by a food preparer.
Please return to emergency department should you experience acute worsening of your pain, shortness of breath, chest pain, pain when he take a deep breath, intractable nausea or vomiting, lightheadedness, dizziness, fainting spells, or any other
signs or symptoms concerning to you.
Interventions
Interventions:
*Risk Screen - Suicide Last Done: 07/06/24 20:42
*General Assessment Last Done: 07/06/24 20:42
*Neglect/Abuse Screening Last Done: 07/06/24 20:42
*ED COVID-19 Vaccine History Last Done: 07/06/24 20:42
*Nursing Disposition Last Done: 07/06/24 20:43
ED- Cardiac Assessment Last Done: 07/06/24 20:42
ED- Pulmonary Assessment Last Done: 07/06/24 20:42
ED-Peripheral Vascular Assessment Last Done: 07/06/24 19:34
ED-Skin Assessment Last Done: 07/06/24 19:34
Discharge Date and Time
Discharge Date/Time: 07/06/24 20:43
Print Language: EQUATORIAL GUINEAN
[2024-07-06 19:43] VITALS: BMI 23.9
[2024-07-06] MEDS: ELIQUIS 10 MG PO (20:36)
[2024-07-06 20:42] VITALS: BP 136/88
== END 2024-07-06 20:43 | disposition home or self-care (01) ==
LOC: EMR 16:35
PROVIDERS: Student in an Organized Health Care Education/Training Program; EMERGENCY PHYSICIAN Emergency Medicine; FAMILY PHYSICIAN Family Medicine
DX: I82.432 Acute embolism and thrombosis of left popliteal vein (principal); I82.452 Acute embolism and thrombosis of left peroneal vein; I82.442 Acute embolism and thrombosis of left tibial vein; M79.662 Pain in left lower leg; R53.83 Other fatigue; G20.A1 Parkinson's disease without dyskinesia, without mention of fluctuations; F17.210 Nicotine dependence, cigarettes, uncomplicated; Z86.718 Personal history of other venous thrombosis and embolism; Z87.01 Personal history of pneumonia (recurrent); Z87.442 Personal history of urinary calculi; Z88.0 Allergy status to penicillin
CPT/HCPCS: 99284; 80053; 85025; 93971

== ENCOUNTER 2025-06-21 20:44 | Inpatient (IN) | payer MEDICARE, OTHER, SELFPAY ==
[2025-06-21 16:35] VITALS: BP 127/83
--- NOTE | 2025-06-21 16:50 | ED.GENMED ---
History of Present Illness
<Dilcia Weiss, LEAD SOFTWARE ARCHITECT - Last Filed: 06/21/25 22:35>
General
Chief Complaint: Flank Pain
Source: patient
Exam Limitations: none
Time Seen by Provider: 06/21/25 16:45
Nursing documentation reviewed up to this point in time: agreed with
History of Present Illness
History of Present Illness:
70-year-old male with history of DVT on Eliquis, kidney stones, Parkinson's disease, presents for right flank and abdominal pain that started 5 PM yesterday gradually getting worse, pain is now 9/10. He denies nausea or vomiting. He denies fever
or chills.
Past History
<Dilcia Weiss, LEAD SOFTWARE ARCHITECT - Last Filed: 06/21/25 22:35>
Past History
ED Past Medical History: Other (Parkinson's) and Other (DVT, right lower extremity x2)
ED Past Surgical History: None
Social History
Tobacco: Non-smoker
Alcohol: None
Drug: None
Personal:
Living: with family
Employment: Employed
Review of Systems
<Dilcia Weiss, LEAD SOFTWARE ARCHITECT - Last Filed: 06/21/25 22:35>
Review of Systems
Allergies reviewed?: Yes
All Other Systems: ROS reviewed and negative except as documented in HPI and ROS
Phy Exam
<Dilcia Weiss, LEAD SOFTWARE ARCHITECT - Last Filed: 06/21/25 22:35>
Physical Exam
Physical Exam:
GENERAL: A&Ox3. Pacing due to pain
CONSTITUTIONAL: Afebrile.
EYES: clear, conjunctivae normal
ENMT: moist mucus membranes, Pharynx nl
RESPIRATORY: Regular respirations, nonlabored, lungs clear.
CARDIOVASCULAR: Regular rate and rhythm, no murmurs, no rubs.
GI: Soft, nontender, normal BS, right flank tenderness
MUSCULOSKELETAL: Moves with ease. Well perfused.
SKIN: Warm, dry, pink
PSYCH: Anxious mood and affect. Well kept, interactive and appropriate
NEUROLOGIC: Awake, alert and oriented. No focal neurological deficits
Course
<Dilcia Weiss LEAD SOFTWARE ARCHITECT - Last Filed: 06/21/25 22:35>
Orders/Labs/Results
Orders:
Orders
06/21/25 16:49
CT Abd/pel Without Iv Or Oral Urgent
Comment:
Reason For Exam: R flank and abd pain
IV Insert/Care/Rem.- Treatment PRN
0.9% Sodium Chloride 1000 ml [Nss] 1,000 ml IV BOLUS
HYDROmorphone [Dilaudid] 1 mg IV NOW STA
Ondansetron Injectable [Zofran] 4 mg IV NOW STA
06/21/25 17:01
Complete Blood Count/With Diff Urgent
Comprehensive Metabolic Panel Urgent
Creatine Phosphokinase Urgent
Comment: ADD ON
Urinalysis Reflex To Culture Urgent
Date Specimen was Collected: 06/21/25
Time Specimen was Collected: 16:52
Urine Microscopic Reflex Cult Urgent
06/21/25 19:06
HYDROmorphone [Dilaudid] 0.5 mg .ROUTE .STK-MED ONE
06/21/25 19:08
HYDROmorphone [Dilaudid] 0.5 mg IV NOW STA
06/21/25 19:35
UROLOGY CONSULT Urgent
Consulting Provider: Kenneth Corea
Was physician already notified: Yes
Comment: Multiple right ureteral stones, acute renal insufficiency, elevated AST
06/21/25 19:47
CefTRIAXone [Rocephin] 1,000 mg IV NOW STA
06/21/25 19:49
Add On- LAB Urgent
Tests Added?: cpk
06/21/25 20:08
Admit/Transfer Patient As Directed
Co-Sign Provider:
Level of Care: Inpatient admission
Assign to:: Medical/Surgical
Physician / Group: Cesar
Diagnosis: Obstructing Kidney Stone
Reason for Hospitalization: IVF, IV abx
Expected length of stay greater than two midnights?: Yes
ELOS- Estimated Length of Stay in days: 3
I certify the patient meets the requirements for IP care: Yes
PRN Pain Medication Management As Directed
May give lesser potent ordered pain med per pt: Yes
preference::
Protocol:: Medication orders for pain may be administered in a
manner that supports deferring to patient preference
when the pt is:
- Requesting an ordered lesser potent pain medication.
Least to most potent pain medications are defined
as: acetaminophen < NSAID < tramadol < opioids
(morphine, oxycodone, hydromorphone).
- Requesting a lesser dose of the same medication IF
ORDERED.
- Requesting a less intrusive route of administration
if both routes are prescribed by the provider (PO <
IV).
06/21/25 20:10
Code Status As Directed
Resuscitation Status: Full Code
06/21/25 20:13
Sterile Water [Sterile Water For Injection] 10 ml .ROUTE .STK-MED ONE
Abnormal Lab Results
06/21/25
17:01
WBC 14.6 H 10^3/uL
(4.8-10.8)
RBC 4.50 L 10^6/uL
(4.70-6.10)
Abs Immat Gran (auto) 0.1 H 10^3/uL
(0-0.05)
Absolute Neuts (auto) 11.1 H 10^3/uL
(1.4-6.5)
Absolute Monos (auto) 1.4 H 10^3/uL
(0.1-0.6)
Neutrophils % 76.1 H %
(42.2-75.2)
Lymphocytes % 12.5 L %
(20.5-51.1)
Monocytes % 9.8 H %
(1.7-9.3)
BUN 31 H mg/dl
(9-20)
Creatinine 2.3 H mg/dL
(0.7-1.3)
Glucose 102 H mg/dl
(70-99)
AST 628 H* U/L
(17-59)
Creatine Kinase 35861 H U/L
(55-170)
Ur Occult Blood Reflex 4+ A
(Negative)
Urine RBC 3-6 A /HPF
(0-2)
Urine Bacteria (Reflex) Few A
(Negative)
Urine Albumin (Reflex) 3+ A
(Neg - Trace)
06/21/25 17:01
06/21/25 17:01
Vital Signs
Initial and Last Documented VS:
Initial Vital Signs
Temp Pulse Resp BP Pulse Ox
97.1 F 72 16 127/83 97
06/21/25 16:35 06/21/25 16:35 06/21/25 16:35 06/21/25 16:35 06/21/25 16:35
Last Documented Vital Signs
Temp Pulse Resp BP Pulse Ox
97.1 F 82 16 134/72 96
06/21/25 16:35 06/21/25 19:13 06/21/25 19:13 06/21/25 19:13 06/21/25 19:13
Ricardolt;Marcella Cornelius, - Last Filed: 06/21/25 20:08>
Orders/Labs/Results
Orders:
Orders
06/21/25 16:49
CT Abd/pel Without Iv Or Oral Urgent
Comment:
Reason For Exam: R flank and abd pain
IV Insert/Care/Rem.- Treatment PRN
0.9% Sodium Chloride 1000 ml [Nss] 1,000 ml IV BOLUS
HYDROmorphone [Dilaudid] 1 mg IV NOW STA
Ondansetron Injectable [Zofran] 4 mg IV NOW STA
06/21/25 17:01
Complete Blood Count/With Diff Urgent
Comprehensive Metabolic Panel Urgent
Creatine Phosphokinase Urgent
Comment: ADD ON
Urinalysis Reflex To Culture Urgent
Date Specimen was Collected: 06/21/25
Time Specimen was Collected: 16:52
Urine Microscopic Reflex Cult Urgent
06/21/25 19:06
HYDROmorphone [Dilaudid] 0.5 mg .ROUTE .STK-MED ONE
06/21/25 19:08
HYDROmorphone [Dilaudid] 0.5 mg IV NOW STA
06/21/25 19:35
UROLOGY CONSULT Urgent
Consulting Provider: Kenneth Corea
Was physician already notified: Yes
Comment: Multiple right ureteral stones, acute renal insufficiency, elevated AST
06/21/25 19:47
CefTRIAXone [Rocephin] 1,000 mg IV NOW STA
06/21/25 19:49
Add On- LAB Urgent
Tests Added?: cpk
06/21/25 20:08
Admit/Transfer Patient As Directed
Co-Sign Provider:
Level of Care: Inpatient admission
Assign to:: Medical/Surgical
Physician / Group: Cesar
Diagnosis: Obstructing Kidney Stone
Reason for Hospitalization: IVF, IV abx
Expected length of stay greater than two midnights?: Yes
ELOS- Estimated Length of Stay in days: 3
I certify the patient meets the requirements for IP care: Yes
PRN Pain Medication Management As Directed
May give lesser potent ordered pain med per pt: Yes
preference::
Protocol:: Medication orders for pain may be administered in a
manner that supports deferring to patient preference
when the pt is:
- Requesting an ordered lesser potent pain medication.
Least to most potent pain medications are defined
as: acetaminophen < NSAID < tramadol < opioids
(morphine, oxycodone, hydromorphone).
- Requesting a lesser dose of the same medication IF
ORDERED.
- Requesting a less intrusive route of administration
if both routes are prescribed by the provider (PO <
IV).
06/21/25 20:10
Code Status As Directed
Resuscitation Status: Full Code
06/21/25 20:13
Sterile Water [Sterile Water For Injection] 10 ml .ROUTE .STK-MED ONE
Abnormal Lab Results
06/21/25
17:01
WBC 14.6 H 10^3/uL
(4.8-10.8)
RBC 4.50 L 10^6/uL
(4.70-6.10)
Abs Immat Gran (auto) 0.1 H 10^3/uL
(0-0.05)
Absolute Neuts (auto) 11.1 H 10^3/uL
(1.4-6.5)
Absolute Monos (auto) 1.4 H 10^3/uL
(0.1-0.6)
Neutrophils % 76.1 H %
(42.2-75.2)
Lymphocytes % 12.5 L %
(20.5-51.1)
Monocytes % 9.8 H %
(1.7-9.3)
BUN 31 H mg/dl
(9-20)
Creatinine 2.3 H mg/dL
(0.7-1.3)
Glucose 102 H mg/dl
(70-99)
AST 628 H* U/L
(17-59)
Creatine Kinase 54733 H U/L
(55-170)
Ur Occult Blood Reflex 4+ A
(Negative)
Urine RBC 3-6 A /HPF
(0-2)
Urine Bacteria (Reflex) Few A
(Negative)
Urine Albumin (Reflex) 3+ A
(Neg - Trace)
06/21/25 17:01
06/21/25 17:01
Vital Signs
Initial and Last Documented VS:
Initial Vital Signs
Temp Pulse Resp BP Pulse Ox
97.1 F 72 16 127/83 97
06/21/25 16:35 06/21/25 16:35 06/21/25 16:35 06/21/25 16:35 06/21/25 16:35
Last Documented Vital Signs
Temp Pulse Resp BP Pulse Ox
97.1 F 82 16 134/72 96
06/21/25 16:35 06/21/25 19:13 06/21/25 19:13 06/21/25 19:13 06/21/25 19:13
<Dilcia Weiss, LEAD SOFTWARE ARCHITECT - Last Filed: 06/21/25 22:35>
MDM/Problems Addressed
Differential Diagnosis Includes:
Ureteral stone, UTI, pyelonephritis
MDM/Problems Addressed:
70-year-old male with history of DVT on Eliquis, kidney stones, Parkinson's disease, presents for right flank and abdominal pain that started 5 PM yesterday gradually getting worse, pain is now 9/10. He denies nausea or vomiting. He denies fever
or chills.
Afebrile, mild distress due to pain
5:30 PM:
CBC: WBC 14.6 with left shift
CMP: BUN/creat 31/2.3, GFR 29.99, AST 628 with normal bilirubin ALT and alk phos.
UA: Mom told myself plus for occult blood, 3-6 RBCs, 6-10 WBCs, few squames, few bacteria
7:15 PM:
CT abdomen pelvis radiology report reviewed: IMPRESSION:
1. There are three distal right ureteral calculi including a 6 mm calculus at the ureterovesical junction and two adjacent calculi just proximal to this, the larger measuring up to 5 mm. Associated moderate diffuse right hydroureteronephrosis.
7:30 PM:
Case discussed with Dr. Rivera who evaluated patient.
Diagnosis: Acute renal insufficiency, multiple right ureteral calculi, elevated AST (Carbidopa-levodopa can cause elevated AST)
Consulted urology Dr. Corea who request broad-spectrum antibiotic, NPO and is on OR schedule for 8 a.m. tomorrow.
Hospitalist notified of admission.
Hold Eliquis
<Dilcia Weiss LEAD SOFTWARE ARCHITECT - Last Filed: 06/21/25 22:35>
*Pulse Oximetry
SaO2: 97
Oxygen Mode of Delivery: Room air
Patient hypoxic: no
*Critical Care Note
Total Time (30-74mins, 75-104mins- exclusive of procedures): Not Applicable
ED Attending Note
<Dilcia Weiss LEAD SOFTWARE ARCHITECT - Last Filed: 06/21/25 22:35>
-
Portions of this chart may have been created with voice recognition software.� Occasional wrong word or��sound alike� substitutions may have occurred due to the inherent limitations of voice recognition software.
<Marcella Cornelius DO - Last Filed: 06/21/25 20:08>
ED Attending Note
Patient seen and examined by attending physician: Yes
I performed the substantive portion of visit, reviewed & personally made and approve the management plan that is documented in note by myself or MIGUEL.: Yes
I performed a history and physical exam of patient and discussed management with resident, I reviewed resident's note and agree with documented findings and plan of care.: Yes
ED Attending Note:
70-year-old male presents to the ER for evaluation of right sided abdominal pain with prior history of kidney stone. He reports poor appetite over the past few days. VS reviewed, pt is awake, alert in no acute distress, fine diffuse tremor,
mmtacky, abd soft with mild pain on palpation, ext without edema, GCS is 15. I discussed with patient and sister now present at bedside all test results and plan that had been reviewed with urology for ureteral stenting tomorrow given the multiple
kidney stones, concern for possible coexisting urinary infection and new elevation in his creatinine. Patient also has isolated LFT elevation which may be related to medication, no evidence for acute liver process seen on CT. Patient and sister
agree with plan for admission. Patient was admitted to the hospitalist in stable condition.
Discharge Plan
Departure
Patient Disposition: Admit
Date of Disposition: 06/21/25
Time of Disposition: 19:48
Admit to: Med/Surg
Presentation/result/management discussed w/ accepting MD/DO: Hospitalist
Condition: Fair
Discharge Problem:
Right ureteral calculus, Acute kidney insufficiency, Elevated SGOT (AST), Hydroureteronephrosis
Interventions
Interventions:
*Risk Screen - Suicide Last Done: 06/21/25 16:35
*General Assessment Last Done: 06/21/25 16:35
*Neglect/Abuse Screening Last Done: 06/21/25 16:35
*ED COVID-19 Vaccine History Last Done: 06/21/25 16:35
*Nursing Disposition Last Done: 06/21/25 22:28
JD-Cxvzfg-Uhaponpscb Assessment Last Done: 06/21/25 18:36
ED-Male Genitourinary Assessment Last Done: 06/21/25 18:36
[2025-06-21] MEDS: DILAUDID 1 MG IV (17:00)
[2025-06-21] MEDS: NSS 1000 IV ×2 (17:00→23:18)
[2025-06-21] MEDS: ZOFRAN 4 MG IV (17:00)
[2025-06-21 17:14] LABS: Urine Character Clear (Clear)
[2025-06-21 17:35] LABS: Hematocrit 40.3 % (39.0-52.0); Hemoglobin 13.5 g/dL (13.0-18.0); Mean Corp Hgb Conc. 33.5 g/dL (33.0-37.0); Mean Corpuscular Volume 89.6 fL (80.0-94.0); Nucleated Red Blood Cells % 0 % (-); Platelet Count 245 10^3/uL (130-400); Red Cell Dist. Width 13.5 % (11.5-14.5)
[2025-06-21 17:36] LABS: ALT (SGPT) 25 U/L (0-50); AST (SGOT) 628 U/L (17-59); Albumin 4.6 g/dl (3.5-5.0); Alkaline Phosphatase 75 U/L (38-126); Blood Urea Nitrogen 31 mg/dl (9-20); Calcium 9.0 mg/dl (8.4-10.2); Carbon Dioxide 25 mmol/L (22-30); Chloride 107 mmol/L (98-107); Glucose 102 mg/dl (70-99); Potassium 4.5 mmol/L (3.5-5.1); Sodium 138 mmol/L (135-145); Total Protein 7.7 g/dl (6.3-8.2); eGFR 29.99
[2025-06-21] MEDS: DILAUDID 0.5 MG IV (19:08)
[2025-06-21 19:13] VITALS: BP 134/72
--- NOTE | 2025-06-21 19:53 | HPS.HSE ---
Addendum entered and electronically signed by Dimitris Guerrero DO 06/21/25 21:57:
Patient seen and examined independently. Agree with findings and plan as set forth by Estrellita Rodrigues PA-C.
Patient is a 70y M with PMH significant for Parkinson's Disease who presents to ED complaining of RLQ abdominal pain and R flank pain since last PM. Patient has prior history of kidney stones and notes that his current symptoms are similar. No
fevers / chills, N/V/D, etc.
Ass:
Right Ureterolithiasis
UGO
Rhabdomyolysis
Parkinson's Disease
History of DVT
Plan:
Admit for further evaluation and treatment.
NPO, IVFs, tamsulosin, pain control, etc.
Tentatively sched for OR at 8 AM for cysto / stent.
Eliquis held pending OR.
Appreciate Urology evaluation / input.
AST newly elevated and follow-up CPK markedly elevated (04521).
No significant muscle pains. No recent increase in rigidity, trauma, injury, fall, etc.
Etiology for apparent muscle injury is unclear - and patient with no specific symptoms of such including pain, new weakness, etc.
Hold ropinirole for now.
IVFs and follow serial CPK for improvement.
Consider Rheumatology evaluation for additional recommendations.
Original Note:
Family Physician
-
Family Physician: NOT KNOW UNKNOWN - PT DOES
Chief Complaint
-
Right Flank Pain
History of Present Illness
Patient is a 70 y/o male past medical history of Parkinson's Disease, Recurrent DVTs on Eliquis, and prior kidney stones who presents with right flank pain. Patient reports pain started yesterday evening and has gotten progressively worse. He
reports some radiation of the pain around his side and down to the groin. He reports pain is similar to is prior kidney stones. He denies any prior intervention for kidney stones, and previously has been able to pass them. He denies dysuria or
hematuria. He denies fevers, sweats or chills.
Medical History
Past Medical History
Past Medical History: Reports Other
Additional Past Medical History:
Parkinson's Disease
Recurrent DVT
Past Surgical History: Reports None
Social History
Tobacco: Smoker (1/2 PPD)
Alcohol: Occasional
Family History
Family History: Not pertinent
Allergies / Home Medications
Allergies reflects when Allergies were last updated in [facility].
Home Medications with original date entered in [facility]
Allergy/Medication List:
Allergies
Allergy/AdvReac Type Severity Reaction Status Date / Time
Penicillins Allergy Rash Verified 06/21/25 16:37
Home Medications
carbidopa 10 mg-levodopa 100 mg tablet 2 tab PO 5/D parkinson's 05/22/24
trihexyphenidyl 2 mg tablet 2 mg PO BIDPRN PRN shakes 05/22/24
apixaban 5 mg tablet (Eliquis) 5 mg PO BID Blood Clot Prevention/Tx 05/23/24
ropinirole 8 mg tablet,extended release 24 hr 8 mg PO HS 06/21/25
Review of Systems
-
A 12 point ROS was completed and negative except as noted: Yes
Constitutional: Denies Fever
Respiratory: Denies Cough or Trouble Breathing
Cardiac: Denies Chest Pain or Palpitations
Abdomen/GI: Denies Abdominal Pain, Nausea or Vomiting
Physical Exam
Vital Signs
Vital Signs
Temp Pulse Resp BP Pulse Ox
97.1 F 82 16 134/72 96
06/21/25 16:35 06/21/25 19:13 06/21/25 19:13 06/21/25 19:13 06/21/25 19:13
Physical Exam
General: Comfortable and Conversant
HEENT: Anicteric and Moist mucous membranes
Respiratory: Clear and Non Labored Respirations
Cardiac: S1/S2 and Regular Rhythm
GI: Soft and Tender (Mild right flank)
Rectal: Deferred by Provider
Musculoskeletal: No Clubbing, No Cyanosis and No Edema
Skin: Warm and Dry
Neuro: Awake, Alert, Oriented and Tremors
Psych: Calm
Laboratory Results
-
06/21/25 17:01
06/21/25 17:
Laboratory Results
Total Bilirubin 1.1 mg/dl (0.2-1.3) 06/21/25 17:
AST 628 U/L (17-59) H* 06/21/25 17:
ALT 25 U/L (0-50) 06/21/25 17:
Alkaline Phosphatase 75 U/L (38-126) 06/21/25 17:
Abd/Pelvis CT Scan:
There are three distal right ureteral calculi including a 6 mm calculus at the ureterovesical junction and two adjacent calculi just proximal to this, the larger measuring up to 5 mm. Associated moderate diffuse right hydroureteronephrosis.
Data Reviewed
-
CT Scan: Report Reviewed by me
Lab Data: Labs Reviewed by me
Impression/Plan
-
Obstructing Right UVJ Stones
-Consult Urology
-Planning for OR tomorrow
-Continue ceftriaxone
Acute Kidney Injury suspect secondary to Obstructing Kidney Stone and possible myoglobin injury
-Continue IVFs
-Recheck labs in AM
Elevated AST, possibly related to significant tremors
-Check CPK to evaluate for possible rhabdomyolysis
-Continue to trend
Parkinson's Disease
-Continue Sinemet, Ropinirole and Trihexyphenidyl
Recurrent DVTs
-Hold Eliquis for OR - Resume when OK with Urology
-Will use SCDs until able to resume Eliquis
Tobacco Use Disorder
-Encourage smoking cessation
-Nicotine Patch during hospitalization
Code Status: Full Code
[2025-06-21] MEDS: ROCEPHIN 1000 MG IV (20:27)
--- NOTE | 2025-06-21 22:50 | PTCARENOTE ---
Pt admitted from ED @ 2250 Ambulated independently to bed w/o complication. Pt AAOx3, vss. Admission assessment completed. IVF initiated per order. Abdomen hypoactive, right-sided tenderness. Skin intact. NPO @ midnight for R cysto, stent placement
with Dr. Corea. SCDs applied per order. Pt oriented to room, call gibson within reach, bed locked and in lowest position. Reviewed plan of care with pt. Questions answered. Care ongoing.
[2025-06-21 22:55] VITALS: BP 125/76
[2025-06-21] MEDS: SINEMET 10-100 2 TABLET PO (23:18)
[2025-06-21] MEDS: FLOMAX 0.4 MG PO (23:18)
[2025-06-21 23:24] VITALS: BMI 23.7
[2025-06-22] VITALS (14 sets, daily range): BP systolic 88–155; BP diastolic 50–81
[2025-06-22] MEDS: MORPHINE SULFATE 2 MG IV (05:00)
[2025-06-22] MEDS: DILAUDID 0.25 MG IV (06:08)
[2025-06-22] MEDS: NSS 1000 IV ×3 (06:08→21:00)
--- NOTE | 2025-06-22 07:30 | W.SUR.PREOP ---
Pre-Operative Surgical Note
-
I have examined this patient prior to the performance of the scheduled procedure.
The patient's condition is unchanged from the time of the current History and
Physical and the patient is able to undergo the scheduled procedure.
Multiple obstructing distal right ureteral stones.
UGO
Leukocytosis
Suspected cUTI
To OR for cystoscopy + RIGHT stent placement
Surgical consent to be signed in preop holding
Continue IV antibiotics
Hold Eliquis (stopped 06/21)
[2025-06-22] MEDS: SINEMET 10-100 2 TABLET PO ×5 (07:43→21:00)
[2025-06-22] MEDS: FLOMAX 0.4 MG PO (07:44)
[2025-06-22] MEDS: NICODERM TRANSDERMAL 14 MG TRANSDERM (07:44)
--- NOTE | 2025-06-22 08:48 | W.IMMPOSTOP ---
Surgical Immed Post Op Note
-
Primary Surgeon: Anmol
Pre-op Diagnosis: Urosepsis, obstructing distal right ureteral stones (multiple), UGO
Post-op Diagnosis: Same
Procedure Performed: cystoscopy + RIGHT stent insertion
Anesthesia Type: LMA +intraurethral lidocaine jelly
Specimen / Cultures: None/None
Estimated Blood Loss: Negligible
Drains: 4.7Fr x 26 cm JJ right ureteral stent
Complications: None
Operative Findings:
Brisk efflux of grossly purulent urine from right UO after stent insertion.
Final KUB and cystoscopy confirming appropriate stent position.
--- NOTE | 2025-06-22 08:55 | W.PN.HOSP.TC ---
Today's Communication/Plan
-
see PN
Assessment / Plan
Assessment / Plan
70yo M with PMHX of Parkinsons, Hx of DVT on ELiquis came with L flank pain found three distal right ureteral calculi including a 6 mm calculus at the ureterovesical junction and two adjacent calculi just proximal to this, the larger measuring up to
5 mm. Associated moderate diffuse right hydroureteronephrosis, scheduled by Urology for OR on 06/22/25. ALso accidental rhabdomyolisis wihtout myalgia
A/P:
#Obstructive nephrolithiasis
#moderate diffuse right hydroureteronephrosis
#UTI, pyelonephritis
IVF
Pain mgmt
follow Ucx - add-on
Urology
Ceftriaxone
#Parkinsons
#Rhabdomyolisis
WIth absent myalgia - unlikely miositis
Patient with recurrent dark urine at home, tremors, can be Parkisons vs levodopa induced diskenisia
Neuro consult
IVF and follow CPK
#AST
isolated elevation 2/2 CPK elevation
follow LFT
#UOG
2/2 obstructive nephrolithiasis vs rhabdomyolisis-induced
cont IVF
#Hx of DVT
restart ELiquis when Ok by Urologist
DVT ppx SCDs
Full code
I have spent at least 58min reviewing chart, test results, communication with consultants and provding direct patient care
Anticipated Discharge: 24 - 48 hours
Subjective/Interval History
-
Date of Service: June 22, 2025
Objective Data
-
Labs:
Laboratory Results
06/22/25
06:00
WBC Pending
Hgb Pending
Hct Pending
Plt Count Pending
Sodium Pending
Potassium Pending
Chloride Pending
Carbon Dioxide Pending
BUN Pending
Creatinine Pending
Glucose Pending
Calcium Pending
Total Bilirubin Pending
AST Pending
ALT Pending
Alkaline Phosphatase Pending
Vital Signs:
Vital Signs
Temp Pulse Resp BP Pulse Ox
99.3 F 103 18 139/74 95
06/22/25 07:50 06/22/25 07:50 06/22/25 07:50 06/22/25 07:50 06/22/25 07:50
I&O
06/21/25 06/22/25 06/23/25
06:59 06:59 06:59
Intake Total 1420 / 1420
Output Total 350 / 350
Balance 1070 / 1070
Review of Systems
-
History Source: Patient
All other systems: Reviewed and negative
Physical Exam
-
General: No Apparent Distress
HEENT: Normocephalic
Respiratory: Clear to Auscultation
Cardiac: Regular Rhythm
Musculoskeletal: No Clubbing, No Cyanosis and No Edema
Skin: Warm
Neuro: Awake, Alert, Oriented, AO x 3 and Tremors
Psych: Calm
--- NOTE | 2025-06-22 09:15 | W.PN.UPDATE ---
Update Note
Progress Note Update
06/22: s/p cystoscopy + right ureteral stent insertion.
Intraop => urine efflux noted to be purulent suspicious for cUTI.
- Continue IV abx pending UCx/BCx S/S
- Regular diet (ordered)
- OK to resume Eliquis 06/23 AM (no further surgical interventions planned)
- Plan for outpatient definitive stone surgery in 2-3 weeks
--- NOTE | 2025-06-22 09:50 | CON.NEURO ---
Consultation
Order
Date of Consultation: 06/22/25
Requesting Provider: Luis Enrique Flores MD
Reason for Consult: Concern for dyskinesia
Neurology Consultation Note.
HPI: This is a 70-year-old RH man who presented to [facility] on 06/19/2025 with left flank pain. Neurology consultation was requested for evaluation and management of dyskinesias.
The patient's initial symptom was a resting tremor in the right hand, which remains the most bothersome symptom. He also experiences an action tremor when holding objects like a cup of coffee. The patient is currently considering Deep Brain
Stimulation and has an appointment scheduled for September 23 to discuss this option further. He is awaiting to be established with [facility] [place] [facility] as well.
Mr. Aguilar would like to defer interview and exam since he has established neurological care that he is satisfied with.
Home regimen: Carbidopa levodopa 10/100 2 tablets BID, ropinirole 8 mg nightly, 3X-interval 2 mg twice daily as needed
ER VS: 112/59-90/50, 75, afebrile.
Telemetry�normal sinus rythm
PDMP: No recently prescribed medication
Labs: Glucose�102, AST�6028�474, CK�[id number], normal TSH WBCs 14.6�17.1, normal platelets,
PMH: IPD(2012), DVT on Eliquis, anemia, nephrolithiasis
PSH: Cystoscopy/Right ureteral stent insertion
SH:
All: Penicillins,
ROS: Positive for resting right hand and action tremor.
General: Well developed. In no acute distress.
Cardio: Regular rate and rhythm without murmur. Extremities are without cyanosis or edema.
Neuro:
Mental Status: Alert, oriented to self, place. No aphasia or hemineglect.
Cranial Nerves: Orthophoric primary gaze. No facial weakness, hearing preserved. No dysarthria or dysphonia
Motor: Moves all limbs antigravity symmetrically purposefully
Coordination: Intermittent right resting hand tremor. No dyskinesias
Gait: deferred
Assessment and Plan:
I. IPD
II. Nephrolithiasis
-Fall precautions
-Avoid dopamine blockers
-Outpatient neurology follow-up with Dr. Joseph Rivero
-Please recall neurology services any questions or concerns.
I personally reviewed all radiology and labs along with past medical records pertinent to current medical problems. Total time spent in patient care is 40 minutes.
Thank you for allowing us to participate in the care of this patient. Please do not hesitate to contact us with any questions or concerns.
Subjective/Objective
Subjective Data
Date of Service: June 22, 2025
Objective Data
Vital Signs
Temp Pulse Resp BP Pulse Ox
37.6 C 75 11 106/60 99
06/22/25 09:45 06/22/25 09:45 06/22/25 09:45 06/22/25 09:45 06/22/25 09:45
Sodium 138 mmol/L (135-145) 06/21/25 17:01
Potassium 4.5 mmol/L (3.5-5.1) 06/21/25 17:01
BUN 31 mg/dl (9-20) H 06/21/25 17:01
Glucose 102 mg/dl (70-99) H 06/21/25 17:01
Calcium 9.0 mg/dl (8.4-10.2) 06/21/25 17:01
Patient Allergies
Penicillins Allergy (Verified 06/21/25 16:37)
Rash
Medications
-
Active Medications
Generic Name Dose Route Start Last Admin
Trade Name Freq PRN Reason Stop Dose Admin
Acetaminophen 650 mg 06/21/25 22:52
Acetaminophen 325 Mg Tablet PO 07/19/25 22:51
Q4HPRN PRN
mild pain/ fever>100.5F
Apixaban 5 mg 06/23/25 08:00
Apixaban (Eliquis) 5 Mg Tablet PO 07/21/25 07:59
BID GERALDO
Carbidopa/Levodopa 2 tablet 06/21/25 22:52 06/22/25 07:43
Carbidopa (10 Mg)/Levodopa (100 Mg) Regular Release Tablet PO 07/19/25 22:51 2 tablet
5/D GERALDO Administration
Ceftriaxone Sodium 1,000 mg 06/22/25 20:00
Ceftriaxone 1000 Mg / 10 Ml Vial IV
Q24H GERALDO
Fentanyl Citrate 25 mcg 06/22/25 08:03
Fentanyl (50 Mcg/Ml) 100 Mcg/2 Ml Ampul IV 06/23/25 08:03
[id number] PRN
shivers
Hydromorphone HCl 0.25 mg 06/21/25 22:52 06/22/25 06:08
Hydromorphone 0.25 Mg/0.5 Ml Syringe IV 07/05/25 22:51 0.25 mg
Q3HPRN PRN Administration
severe pain
Hydromorphone HCl 0.5 mg 06/22/25 08:03
Hydromorphone 0.5 Mg/0.5 Ml Syringe IV 06/23/25 08:03
PACU-Q5MPRN PRN
severe pain
Hydromorphone HCl 0.25 mg 06/22/25 08:03
Hydromorphone 0.25 Mg/0.5 Ml Syringe IV 06/23/25 08:03
PACU-Q5MPRN PRN
moderate pain
Sodium Chloride 1,000 mls @ 150 mls/hr 06/21/25 22:52 06/22/25 06:08
Nss IV 1,000 mls
.Q6H40M GERALDO Administration
Parenteral Electrolytes 1,000 mls @ 100 mls/hr 06/22/25 08:15
Normosol-R/Plasmalyte-A IV 06/23/25 08:03
PER PROTOCOL GERALDO
Morphine Sulfate 2 mg 06/22/25 04:53 06/22/25 05:00
Morphine 2 Mg/Ml Syringe IV 07/06/25 04:52 2 mg
Q4HPRN PRN Administration
mod pain
Nicotine 14 mg 06/22/25 08:00 06/22/25 07:44
Nicotine 14 Mg Patch TRANSDERM 07/20/25 07:59 14 mg
DAILY GERALDO Administration
Ondansetron HCl 4 mg 06/22/25 08:03
Ondansetron 4 Mg/2 Ml Vial IV 06/23/25 08:03
PACU-ONCEPRN PRN
nausea/vomiting
Prochlorperazine Edisylate 5 mg 06/22/25 08:03
Prochlorperazine 10 Mg/2 Ml Vial IV 06/23/25 08:03
PACU-ONCEPRN PRN
nausea/vomiting
Sodium Chloride 0 flush 06/21/25 23:00
Sodium Chloride 0.9% (Flush) Syringe IV 07/19/25 22:59
PER PROTOCOL GERALDO
Sterile Water 10 ml 06/22/25 20:00
Sterile Water For Injection 10 Ml Vial IV 07/20/25 19:59
Q24H GERALDO
Tamsulosin HCl 0.4 mg 06/22/25 08:00 06/22/25 07:44
Tamsulosin 0.4 Mg Capsule PO 07/20/25 07:59 0.4 mg
DAILY GERALDO Administration
Trihexyphenidyl HCl 2 mg 06/21/25 22:52
Trihexyphenidyl 2 Mg Tablet PO 07/19/25 22:51
BIDPRN PRN
tremors
Home Medications
�Medication �Instructions �Recorded
carbidopa 10 mg-levodopa 100 mg 2 tab PO 5/D@06,09,,17,20 05/22/24
tablet parkinson's
trihexyphenidyl 2 mg tablet 2 mg PO BIDPRN PRN shakes 05/22/24
apixaban 5 mg tablet (Eliquis) 5 mg PO BID Blood Clot 05/23/24
Prevention/Tx
ropinirole 8 mg tablet,extended 8 mg PO HS Neurological Condition 06/21/25
release 24 hr
Vital Signs and Labs
-
Vital Signs and Labs:
Vital Signs
Temp Pulse Resp BP Pulse Ox
37.1 C 75 18 99/56 98
06/22/25 12:10 06/22/25 12:10 06/22/25 12:10 06/22/25 12:10 06/22/25 12:10
Lab Results
06/22/25 10:37
06/22/25 10:37
Sodium 136 mmol/L (135-145) 06/22/25 10:37
Potassium 5.0 mmol/L (3.5-5.1) 06/22/25 10:37
BUN 30 mg/dl (9-20) H 06/22/25 10:37
Glucose 94 mg/dl (70-99) 06/22/25 10:37
Calcium 8.6 mg/dl (8.4-10.2) 06/22/25 10:37
Phosphorus 3.3 mg/dl (2.5-4.5) 06/22/25 10:37
Medications
-
Medications:
Generic Name Dose Route Start Last Admin
Trade Name Freq PRN Reason Stop Dose Admin
Acetaminophen 650 mg 06/21/25 22:52
Acetaminophen 325 Mg Tablet PO 07/19/25 22:51
Q4HPRN PRN
mild pain/ fever>100.5F
Apixaban 5 mg 06/23/25 08:00
Apixaban (Eliquis) 5 Mg Tablet PO 07/21/25 07:59
BID GERALDO
Carbidopa/Levodopa 2 tablet 06/21/25 22:52 06/22/25 10:36
Carbidopa (10 Mg)/Levodopa (100 Mg) Regular Release Tablet PO 07/19/25 22:51 2 tablet
5/D GERALDO Administration
Ceftriaxone Sodium 1,000 mg 06/22/25 20:00
Ceftriaxone 1000 Mg / 10 Ml Vial IV
Q24H GERALDO
Fentanyl Citrate 25 mcg 06/22/25 08:03
Fentanyl (50 Mcg/Ml) 100 Mcg/2 Ml Ampul IV 06/23/25 08:03
[id number] PRN
shivers
Hydromorphone HCl 0.25 mg 06/21/25 22:52 06/22/25 06:08
Hydromorphone 0.25 Mg/0.5 Ml Syringe IV 07/05/25 22:51 0.25 mg
Q3HPRN PRN Administration
severe pain
Hydromorphone HCl 0.5 mg 06/22/25 08:03
Hydromorphone 0.5 Mg/0.5 Ml Syringe IV 06/23/25 08:03
PACU-Q5MPRN PRN
severe pain
Hydromorphone HCl 0.25 mg 06/22/25 08:03
Hydromorphone 0.25 Mg/0.5 Ml Syringe IV 06/23/25 08:03
PACU-Q5MPRN PRN
moderate pain
Sodium Chloride 1,000 mls @ 150 mls/hr 06/21/25 22:52 06/22/25 06:08
Nss IV 1,000 mls
.Q6H40M GERALDO Administration
Parenteral Electrolytes 1,000 mls @ 100 mls/hr 06/22/25 08:15
Normosol-R/Plasmalyte-A IV 06/23/25 08:03
PER PROTOCOL GERALDO
Morphine Sulfate 2 mg 06/22/25 04:53 06/22/25 05:00
Morphine 2 Mg/Ml Syringe IV 07/06/25 04:52 2 mg
Q4HPRN PRN Administration
mod pain
Nicotine 14 mg 06/22/25 08:00 06/22/25 07:44
Nicotine 14 Mg Patch TRANSDERM 07/20/25 07:59 14 mg
DAILY GERALDO Administration
Ondansetron HCl 4 mg 06/22/25 08:03
Ondansetron 4 Mg/2 Ml Vial IV 06/23/25 08:03
PACU-ONCEPRN PRN
nausea/vomiting
Prochlorperazine Edisylate 5 mg 06/22/25 08:03
Prochlorperazine 10 Mg/2 Ml Vial IV 06/23/25 08:03
PACU-ONCEPRN PRN
nausea/vomiting
Sodium Chloride 0 flush 06/21/25 23:00
Sodium Chloride 0.9% (Flush) Syringe IV 07/19/25 22:59
PER PROTOCOL GERALDO
Sterile Water 10 ml 06/22/25 20:00
Sterile Water For Injection 10 Ml Vial IV 07/20/25 19:59
Q24H GERALDO
Tamsulosin HCl 0.4 mg 06/22/25 08:00 06/22/25 07:44
Tamsulosin 0.4 Mg Capsule PO 07/20/25 07:59 0.4 mg
DAILY GERALDO Administration
Trihexyphenidyl HCl 2 mg 06/21/25 22:52
Trihexyphenidyl 2 Mg Tablet PO 07/19/25 22:51
BIDPRN PRN
tremors
Home Medications
-
Home Medications
carbidopa 10 mg-levodopa 100 mg tablet 2 tab PO 5/D@06,09,,17,20 parkinson's 05/22/24
trihexyphenidyl 2 mg tablet 2 mg PO BIDPRN PRN shakes 05/22/24
apixaban 5 mg tablet (Eliquis) 5 mg PO BID Blood Clot Prevention/Tx 05/23/24
ropinirole 8 mg tablet,extended release 24 hr 8 mg PO HS Neurological Condition 06/21/25
[2025-06-22 10:55] LABS: Hematocrit 37.0 % (39.0-52.0); Hemoglobin 12.4 g/dL (13.0-18.0); Mean Corp Hgb Conc. 33.5 g/dL (33.0-37.0); Mean Corpuscular Volume 90.7 fL (80.0-94.0); Platelet Count 211 10^3/uL (130-400); Red Cell Dist. Width 13.4 % (11.5-14.5)
[2025-06-22 11:07] LABS: ALT (SGPT) 26 U/L (0-50); AST (SGOT) 474 U/L (17-59); Albumin 4.0 g/dl (3.5-5.0); Alkaline Phosphatase 66 U/L (38-126); Blood Urea Nitrogen 30 mg/dl (9-20); Calcium 8.6 mg/dl (8.4-10.2); Carbon Dioxide 23 mmol/L (22-30); Chloride 108 mmol/L (98-107); Estimated Creatinine Clearance 38 ml/min; Glucose 94 mg/dl (70-99); Potassium 5.0 mmol/L (3.5-5.1); Sodium 136 mmol/L (135-145); Total Protein 7.0 g/dl (6.3-8.2); eGFR 35.46
--- NOTE | 2025-06-22 13:10 | W.PN.UPDATE ---
Update Note
Progress Note Update
grossly purulent urine output during cystoscopy after placing the stent. Due to concern for initial false negative Ucx with obstruction - will repeat one
--- NOTE | 2025-06-22 13:47 | CM ---
Patient seen at bedside on . Patient states that he lives with his family in a 2 story home with no prior DME. Patient uses Dr. Zurita, and his pharmacy is [facility]. CM will continue to follow for discharge planning needs.
Plan; home with no needs anticipated at this time.
[2025-06-22] MEDS: ROCEPHIN 1000 MG IV (19:36)
[2025-06-22] MEDS: STERILE WATER FOR INJECTION 10 ML IV (19:36)
[2025-06-23] VITALS (7 sets, daily range): BP systolic 135–157; BP diastolic 68–81; PULSE 80–86; O2SAT 98–99
[2025-06-23] MEDS: NSS 1000 IV ×3 (03:08→19:40)
[2025-06-23 06:51] LABS: Hematocrit 34.3 % (39.0-52.0); Hemoglobin 11.5 g/dL (13.0-18.0); Mean Corp Hgb Conc. 33.5 g/dL (33.0-37.0); Mean Corpuscular Volume 90.3 fL (80.0-94.0); Nucleated Red Blood Cells % 0 % (-); Platelet Count 207 10^3/uL (130-400); Red Cell Dist. Width 13.2 % (11.5-14.5)
[2025-06-23 07:13] LABS: ALT (SGPT) 66 U/L (0-50); AST (SGOT) 324 U/L (17-59); Albumin 3.7 g/dl (3.5-5.0); Alkaline Phosphatase 60 U/L (38-126); Blood Urea Nitrogen 28 mg/dl (9-20); Calcium 8.9 mg/dl (8.4-10.2); Carbon Dioxide 22 mmol/L (22-30); Chloride 112 mmol/L (98-107); Estimated Creatinine Clearance 59 ml/min; Glucose 122 mg/dl (70-99); Potassium 5.6 mmol/L (3.5-5.1); Sodium 140 mmol/L (135-145); Total Protein 6.6 g/dl (6.3-8.2); eGFR 59.47
[2025-06-23] MEDS: LOKELMA 10 GRAM PO (07:31)
[2025-06-23] MEDS: LEVAQUIN 150 IV (07:36)
--- NOTE | 2025-06-23 08:40 | W.PN.URO.CBU ---
Today's Communication / Plan
-
OK to resume Eliquis
Continue IV antibiotics pending UCx S/S
F/U in 2 weeks for preop visit w/ Dr. Corea to schedule definitive outpatient stone surgery
Assessment / Plan
-
Multiple obstructing distal right ureteral stones
UGO
Leukocytosis
cUTI
06/22: s/p cystoscopy + right ureteral stent insertion
Cr normalizing (2.0 => 1.3 after stent insertion)
Diagnosis
-
Date of Service: June 23, 2025
-
Patient Diagnosis:
Multiple obstructing distal right ureteral stones
UGO
Leukocytosis
cUTI
Post Op Day:
06/22: s/p cystoscopy + right ureteral stent insertion
Subjective
-
Voiding comfortably - dysuria nearly resolved.
Urine clear in urinal.
Tolerating diet.
Objective
-
Vital Signs
Temp Pulse Resp BP Pulse Ox
97.7 F 79 14 135/72 99
06/23/25 03:30 06/23/25 03:30 06/23/25 03:30 06/23/25 03:30 06/23/25 03:30
Intake and Output
06/22/25 06/23/25 06/24/25
06:59 06:59 06:59
Intake Total 1420 / 1420 4920 / 4920
Output Total 350 / 350 262 / 2625
Balance 1070 / 1070 2295 / 2295
Intake:
Oral fluids 480 / 480 960 / 960
IV fluids (Total) 940 / 940 3950 / 3950
Normosal 500 / 500
IV piggybacks
Output:
Urine, Voided 350 / 350 2625 / 2625
Laboratory Results
06/23/25 06:31
Physical Exam
-
General - well developed, well nourished, no acute distress
Abdomen - soft, non-tender, non-distended
Skin - warm & dry with no rash
Neuro - AOx3, no motor deficits
Extremities - no clubbing, no cyanosis, no edema
Counseling
-
D/w patient.
D/w Hospitalist.
Care Review
Data Reviewed
Discussed with: Hospitalist and Family
CT Scan: Report Pers Reviewed and Image Pers Reviewed
Total Time Spent with Patient (in minutes): 20
[2025-06-23] MEDS: ELIQUIS 5 MG PO ×2 (08:53→19:35)
[2025-06-23] MEDS: FLOMAX 0.4 MG PO (08:53)
[2025-06-23] MEDS: NICODERM TRANSDERMAL 14 MG TRANSDERM (08:54)
[2025-06-23] MEDS: SINEMET 10-100 2 TABLET PO ×5 (08:55→21:22)
--- NOTE | 2025-06-23 09:38 | W.PN.HOSP.TC ---
Today's Communication/Plan
-
levofloxacin since WBC not improving on Ceftriaxone
cont IVF
labs in AM
Assessment / Plan
Assessment / Plan
70yo M with PMHX of Parkinsons, Hx of DVT on ELiquis came with L flank pain found three distal right ureteral calculi including a 6 mm calculus at the ureterovesical junction and two adjacent calculi just proximal to this, the larger measuring up to
5 mm. Associated moderate diffuse right hydroureteronephrosis, scheduled by Urology for OR on 06/22/25. ALso accidental rhabdomyolysis without myalgia
A/P:
#Obstructive nephrolithiasis
#moderate diffuse right hydroureteronephrosis
#UTI, pyelonephritis
IVF
Pain mgmt
follow Ucx - add-on
Urology: s/p stent on 06/22/25 with purulent urine afterwards - Ucx resent to avoid false neg on admission
Levofloxacin
#Parkinsons
#Rhabdomyolysis
WIth absent myalgia - unlikely myositis, CPK improving on hydration. UGO with infection could be a causative too. Oral hydration at home with outpatient CPK check in 1 week advised - patient verbalized understanding. Patient is not on the statins
Patient with recurrent dark urine at home, tremors, can be Parkinson vs levodopa induced dyskinesia
Neuro consult
IVF and follow CPK
Check urine myoglobin
#AST
isolated elevation 2/2 CPK elevation - decreasing with hydration
follow LFT
#UGO
2/2 obstructive nephrolithiasis vs rhabdomyolysis-induced
cont IVF
#Hyperkalemia
2/2 UGO and rhabdo
follow ptassium after Lokelma
#Hx of DVT
restart ELiquis when Ok by Urologist
DVT ppx SCDs
Full code
I have spent at least 51min reviewing chart, test results, communication with consultants and provding direct patient care
Anticipated Discharge: 24 - 48 hours
Subjective/Interval History
-
Date of Service: June 23, 2025
Objective Data
-
Labs:
Laboratory Results
06/23/25 06/23/25
06:31 13:00
WBC 22.3 H
Hgb 11.5 L
Hct 34.3 L
Plt Count 207
Sodium 140 Pending
Potassium 5.6 H Pending
Chloride 112 H Pending
Carbon Dioxide 22 Pending
BUN 28 H Pending
Creatinine 1.3 Pending
Glucose 122 H Pending
Calcium 8.9 Pending
Total Bilirubin 0.7
AST 324 H
ALT 66 H
Alkaline Phosphatase 60
Vital Signs:
Vital Signs
Temp Pulse Resp BP Pulse Ox
97.7 F 79 14 135/72 99
06/23/25 03:30 06/23/25 03:30 06/23/25 03:30 06/23/25 03:30 06/23/25 03:30
I&O
06/22/25 06/23/25 06/24/25
06:59 06:59 06:59
Intake Total 1420 / 1420 4920 / 4920
Output Total 350 / 350 2625 / 2625
Balance 1070 / 1070 2295 / 2295
Review of Systems
-
History Source: Patient
All other systems: Reviewed and negative
Physical Exam
-
General: Comfortable
HEENT: Normocephalic
Cardiac: Regular Rhythm
GI: Soft, Nontender and Nondistended
Musculoskeletal: No Clubbing, No Cyanosis and No Edema
Neuro: Awake, Alert, Oriented, AO x 3 and Tremors
Psych: Calm
[2025-06-23 13:18] LABS: Blood Urea Nitrogen 26 mg/dl (9-20); Calcium 8.5 mg/dl (8.4-10.2); Carbon Dioxide 24 mmol/L (22-30); Chloride 110 mmol/L (98-107); Estimated Creatinine Clearance 70 ml/min; Glucose 159 mg/dl (70-99); Potassium 4.4 mmol/L (3.5-5.1); Sodium 137 mmol/L (135-145); eGFR > 60.00
[2025-06-24] MEDS: NSS 1000 IV ×2 (01:01→09:12)
[2025-06-24 07:50] VITALS: BP 153/85
[2025-06-24] MEDS: SINEMET 10-100 2 TABLET PO ×2 (07:52→11:01)
[2025-06-24] MEDS: FLOMAX 0.4 MG PO (07:52)
[2025-06-24] MEDS: NICODERM TRANSDERMAL 14 MG TRANSDERM (07:52)
[2025-06-24] MEDS: ELIQUIS 5 MG PO (07:52)
[2025-06-24 08:06] LABS: Hematocrit 33.5 % (39.0-52.0); Hemoglobin 11.2 g/dL (13.0-18.0); Mean Corp Hgb Conc. 33.4 g/dL (33.0-37.0); Mean Corpuscular Volume 88.9 fL (80.0-94.0); Nucleated Red Blood Cells % 0 % (-); Platelet Count 211 10^3/uL (130-400); Red Cell Dist. Width 13.3 % (11.5-14.5)
[2025-06-24 08:17] LABS: ALT (SGPT) 78 U/L (0-50); AST (SGOT) 328 U/L (17-59); Albumin 3.4 g/dl (3.5-5.0); Alkaline Phosphatase 56 U/L (38-126); Blood Urea Nitrogen 19 mg/dl (9-20); Calcium 8.6 mg/dl (8.4-10.2); Carbon Dioxide 26 mmol/L (22-30); Chloride 110 mmol/L (98-107); Estimated Creatinine Clearance 70 ml/min; Glucose 86 mg/dl (70-99); Potassium 4.1 mmol/L (3.5-5.1); Sodium 139 mmol/L (135-145); Total Protein 6.2 g/dl (6.3-8.2); eGFR > 60.00
--- NOTE | 2025-06-24 08:58 | W.PN.HOSP.TC ---
Today's Communication/Plan
-
Discharge home today
Assessment / Plan
Assessment / Plan
70yo M with PMHX of Parkinsons, Hx of DVT on ELiquis came with L flank pain found three distal right ureteral calculi including a 6 mm calculus at the ureterovesical junction and two adjacent calculi just proximal to this, the larger measuring up to
5 mm. Associated moderate diffuse right hydroureteronephrosis, scheduled by Urology for OR on 06/22/25. Also incidental rhabdomyolysis without myalgia
A/P:
#Obstructive nephrolithiasis
#moderate diffuse right hydroureteronephrosis
#UTI, pyelonephritis
Appreciate neurology input, status post right ureteral stent placement on 06/22/25 with purulent urine afterwards
Urine cx 06/21 and 06/22 negative for growth
Leukocytosis improved on levofloxacin
Medically stable for discharge on levofloxacin 500 mg daily for 7 days as per urology recommendations
Follow-up urology in the office in 2 weeks for definitive stent management, follow-up with PCP in 1 week
#Parkinsons
Seen by neurology, recommends continuing home medications
#Rhabdomyolysis
With absent myalgia - unlikely myositis, CPK improving on hydration
UGO with infection could be a causative too. Oral hydration at home with outpatient CPK check in 1 week advised - patient verbalized understanding. Patient is not on the statins
Patient with recurrent dark urine at home, tremors, can be Parkinson vs levodopa induced dyskinesia
CPK downtrending with IV fluids
#AST
isolated elevation 2/2 CPK elevation - decreasing with hydration
follow LFT
#UGO
2/2 obstructive nephrolithiasis vs rhabdomyolysis-induced
Resolved
#Hyperkalemia
2/2 UGO and rhabdo
Resolved status post Lokelma
#Hx of DVT
Eliquis resumed
DVT ppx SCDs
Full code
Physical Exam
General: No acute distress
HEENT: Normocephalic, Atraumatic, EOMI, MMM
Respiratory: Clear to Auscultation bilaterally
Cardiac: Normal S1/S2, Regular Rate and Rhythm
GI: Soft, Nontender, Nondistended, Normal Bowel Sounds
Extremities: No Clubbing, Cyanosis, or Edema
Neuro: Nonfocal/Grossly Intact
Anticipated Discharge: Today
Subjective/Interval History
-
Date of Service: June 24, 2025
Patient denies right flank pain. Denies dysuria. No nausea, no vomiting. Denies chest pain, shortness of breath. No fever.
Objective Data
-
Labs:
Laboratory Results
06/24/25
07:26
WBC 14.0 H
Hgb 11.2 L
Hct 33.5 L
Plt Count 211
Sodium 139
Potassium 4.1
Chloride 110 H
Carbon Dioxide 26
BUN 19
Creatinine 1.1
Glucose 86
Calcium 8.6
Total Bilirubin 0.6
AST 328 H
ALT 78 H
Alkaline Phosphatase 56
Vital Signs:
Vital Signs
Temp Pulse Resp BP Pulse Ox
98.1 F 88 18 153/85 96
06/24/25 07:50 06/24/25 07:50 06/24/25 07:50 06/24/25 07:50 06/23/25 23:15
I&O
06/23/25 06/24/25 06/25/25
06:59 06:59 06:59
Intake Total 4920 / 4920 4200 / 4200
Output Total 2625 / 2625 1180 / 1180
Balance 2295 / 2295 3020 / 3020
[2025-06-24] MEDS: LEVAQUIN 150 IV (09:12)
--- NOTE | 2025-06-24 12:11 | CM ---
Reviewed the chart notes and spoke with the patient at the bedside. IMM reviewed. Patient for discharge today to home. VN order received. Per patient, no need for VN. Patient's sister to provide transportation home. CM continues to be
available to patient/family and is monitoring medical plan for needs at discharge.
Plan: Discharge to home with no needs identified at this time.
[2025-06-24 12:50] VITALS: BP 118/74
--- NOTE | 2025-06-24 14:42 | W.DCSUMMARY ---
Discharge Summary
Discharge Data
Date of Admission: 06/21/25
Date of Discharge: 06/24/25
-
Pending Results: No
Hospital Course
Discharge diagnosis:
Obstructing right ureterolithiasis with hydronephrosis
Acute urinary tract infection
Parkinson's disease
Nontraumatic rhabdomyolysis
Elevated liver function enzymes
Acute kidney injury
Hyperkalemia
History of deep vein thrombosis
Consults: Urology
CT abd/pelvis:
There are three distal right ureteral calculi including a 6 mm calculus at the ureterovesical junction and two adjacent calculi just proximal to this, the larger measuring up to 5 mm. Associated moderate diffuse right hydroureteronephrosis.
Procedures:
06/22/2025 cystoscopy with right ureteral stent placement
Hospital course:
70-year-old male with a past medical history of Parkinson's disease on Sinemet and DVT on Eliquis was admitted for obstructing right ureterolithiasis with hydronephrosis and acute urinary tract infection. Patient was treated with IV Rocephin. He
was seen in conjunction with urology, and had cystoscopy with right ureteral stent placement on 06/22/2025. He had acute kidney injury upon admission, and his creatinine normalized after right ureteral stent placement.
Patient had a leukocytosis that worsened on IV Rocephin. He was changed to IV levofloxacin, and his leukocytosis improved. Urine cultures on 06/21/2025 and 06/22/2025 were both negative.
Patient had elevated AST and ALT upon admission. His liver function tests improved.
Patient also had nontraumatic rhabdomyolysis. He was treated with IV fluids, and his CPK levels improved. He is on Sinemet and Requip for his Parkinson's disease. He was seen in conjunction with neurology. Requip can sometimes cause elevated CPK
levels. Patient has been counseled to discontinue his Requip. He has been instructed to drink plenty of fluids, and have repeat CPK levels checked with his PCP in 1 week.
Urology recommends patient being treated with levofloxacin 500 mg daily for 7 more days upon discharge. He needs to follow-up with urology in the office in 2 weeks, and his PCP in 1 week.
Disposition: Home self-care
Discharge planning: Required 41 minutes
Discharge Plan
-
Patient Disposition: Home with Home Care
Discharge Diagnosis/Procedures: Right ureterolithiasis, acute kidney injury, urinary tract infection, rhabdomyolysis, constipation, Parkinson's
Condition: Good
Diet: Regular
Activity: As tolerated
Blood Work: CMP, CK/CPK levels in 1 week with PCP
Activity Restrictions/Additional Instructions:
You may take imyi-phx-bbodivq MiraLAX/polyethylene glycol 17 g daily as needed for constipation.
If you need something stronger, you can take gaum-bga-pgbyjba magnesium citrate.
Please follow-up with your primary care doctor 1 week, neurology in the office in 2 weeks.
Referrals:
Kenneth Corea MD [Active, Urology] - in two weeks
UNKNOWN - PT DOES,NOT KNOW [Family Provider]
Prescriptions:
New
tamsulosin 0.4 mg Capsule
0.4 mg PO DAILY Qty: 30 0RF
levofloxacin 500 mg tablet
500 mg PO DAILY Qty: 7 0RF
Continued
trihexyphenidyl 2 mg Tablet
2 mg PO BIDPRN PRN (Reason: shakes)
carbidopa-levodopa 10-100 mg Tablet
2 tab PO 5/D@06,09,13,17,20
Rx Instructions:
0600, 0900, 1300,1700, 2000
Eliquis 5 mg tablet
5 mg PO BID
Discontinued
ropinirole 8 mg Tablet Extended Release 24 Hr
8 mg PO HS
Discharge Orders:
Discharge Patient (As Directed); Ordered 06/24/25
Ordered By: Anthony Ross
Discharge Date and Time
Discharge Date/Time: 06/24/25 13:55
Print Language: BELGIAN
[2025-06-26 03:03] LABS: Myoglobin, Urine 4 mg/L (0-1)
== END 2025-06-24 13:55 | disposition home or self-care (01) | DRG 660 ==
LOC: 2 SOUTH 20:44
PROVIDERS: Internal Medicine; Physician Assistant Medical; Registered Nurse; ADMITTING PHYSICIAN Hospitalist; ATTENDING PHYSICIAN Family Medicine; CONSULT PHYSICIAN Psychiatry & Neurology Neurology; CONSULT PHYSICIAN Surgery; EMERGENCY PHYSICIAN Emergency Medicine
PROC: 0T768DZ Dilation of Right Ureter with Intraluminal Device, Via Natural or Artificial Opening Endoscopic (ICD-10-PCS; 2025-06-22)
DX: N13.6 Pyonephrosis (principal); M62.82 Rhabdomyolysis; N17.9 Acute kidney failure, unspecified; E87.5 Hyperkalemia; D64.9 Anemia, unspecified; F17.210 Nicotine dependence, cigarettes, uncomplicated; G20.B1 Parkinson's disease with dyskinesia, without mention of fluctuations; K59.00 Constipation, unspecified; Z88.0 Allergy status to penicillin; Z86.718 Personal history of other venous thrombosis and embolism; Z79.01 Long term (current) use of anticoagulants
CPT/HCPCS: 74018; 74176; 76000; 80048; 80053; 81003; 81015; 82550; 83874; 84100; 84443; 85025; 85027; 87086; 96361; 96374; 96375; 96376; 97162; 97165; 99284; 99406; C2617

== ENCOUNTER → 2025-07-04 13:48 | Outpatient (REF) | payer MEDICARE, OTHER, SELFPAY ==
[2025-07-04 18:26] LABS: Urine Character Cloudy (Clear)
[2025-07-04 18:46] LABS: Urine Squamous Cell 0-2 /LPF (Few)
[2025-07-04 18:49] LABS: Urine Red Blood Cell >100 /HPF (0-2)
== END ==
LOC: CLAB 13:48
PROVIDERS: ATTENDING PHYSICIAN Surgery
DX: N39.0 Urinary tract infection, site not specified (principal)
CPT/HCPCS: 81003; 81015; 87086

== ENCOUNTER 2025-07-08 06:35 | Day surgery (SDC) | payer MEDICARE, OTHER, SELFPAY ==
[2025-07-08] VITALS (7 sets, daily range): BP systolic 95–123; BP diastolic 56–72; BMI 24.2
[2025-07-08] MEDS: NORMOSOL-R/PLASMALYTE-A 1000 IV (09:27)
[2025-07-08] MEDS: DETROL LA 4 MG PO (11:59)
[2025-07-14 12:47] LABS: Stone Analysis Mass 5 mg
== END 2025-07-08 12:39 | disposition home or self-care (01) ==
LOC: SDS 06:35
PROVIDERS: ATTENDING PHYSICIAN Surgery
DX: N20.1 Calculus of ureter (principal); Z87.448 Personal history of other diseases of urinary system
CPT/HCPCS: 52356; 74018; 76000; 82365; 93005; C2617